=== PATIENT | male | born 1955 | race Caucasian/White ===

== ENCOUNTER 2017-09-08 19:23 | Observation (INO) | payer MEDICARE, MEDICAID ==
[~2017-09-08] VITALS: Ht 182.9 cm; Wt 80.0 kg
[~2017-09-08 19:23] MED LIST: AMBI12.5; AMIT150T; ATEN1TAB75; DIAZ10; GLYB1TAB51; REME30TA; VYTO10TA39
[2017-09-08 19:25] VITALS: BP 158/100; PULSE 84; RESP 22; TEMP 98.9; O2SAT 98
[2017-09-08 19:29] VITALS: BP 132/82; PULSE 84; RESP 18; TEMP 98.7; O2SAT 99
[2017-09-08 19:37] VITALS: RESP 24; O2SAT 99
[2017-09-08] MEDS ORDERED: EXEN1INJ2 SQ (19:44)
[2017-09-08] MEDS ORDERED: ATOR10TA15 PO (19:44)
[2017-09-08] MEDS ORDERED: ATEN100T PO (19:44)
[2017-09-08] MEDS ORDERED: QUET5TAB PO (19:44)
[2017-09-08] MEDS ORDERED: LISI2.5T3 PO (19:44)
[2017-09-08] MEDS ORDERED: MIRT45TA PO (19:44)
[2017-09-08] MEDS ORDERED: SITA25 PO (19:44)
[2017-09-08] MEDS ORDERED: QUET1TAB10 PO (19:44)
[2017-09-08] MEDS ORDERED: OMEP20TA93 PO (19:44)
[2017-09-08] MEDS ORDERED: DIAZ5TAB PO (19:44)
[2017-09-08] MEDS ORDERED: SODIUM CHLORIDE 0.9% FLUSH 10 ML FLUSH IVF PRN (19:45)
[2017-09-08] MEDS ORDERED: ASPIRIN 325 MG TAB PO ONE (19:45)
[2017-09-08] MEDS ORDERED: LORazepam 2 MG/ML VIAL IV PUSH ONE (19:45)
[2017-09-08] MEDS ORDERED: NITROGLYCERIN 0.4 MG SL 25 TABS/BTL SL ONE (19:45)
[2017-09-08 19:49] VITALS: BP_SYST 129; BP_SYST 131; BP_DIAS 69; BP_DIAS 71; PULSE 76
[2017-09-08] MEDS ORDERED: MORPHINE SULFATE 2 MG/ML SYRINGE IV PUSH ONE (20:00)
[2017-09-08 20:06] LABS: AUTOMATED NEUTROPHIL # 5.5 TH/MM3 (1.8-7.7); BASOPHIL % 0.4 % (0.0-2.0); EOSINOPHIL # 0.1 TH/MM3 (0-0.4); EOSINOPHIL % 1.3 % (0.0-4.0); HEMOGLOBIN 15.3 GM/DL (13.0-17.0); LYMPH % 28.5 % (9.0-44.0); LYMPHOCYTE # 2.5 TH/MM3 (1.0-4.8); MEAN CELL VOLUME 87.2 FL (80.0-100.0); MEAN CORPUSCULAR HEMOGLOBIN 30.2 PG (27.0-34.0); MEAN CORPUSCULAR HGB CONC 34.6 % (32.0-36.0); MEAN PLATELET VOLUME 8.6 FL (7.0-11.0); MONO % 8.1 % (0.0-8.0); MONOCYTE # 0.7 TH/MM3 (0-0.9); NEUT % 61.7 % (16.0-70.0); PLATELET COUNT 208 TH/MM3 (150-450); RED BLOOD COUNT 5.05 MIL/MM3 (4.50-5.90); RED CELL DISTRIBUTION WIDTH 13.6 % (11.6-17.2); WHITE BLOOD COUNT 8.9 TH/MM3 (4.0-11.0)
--- NOTE | 2017-09-08 20:14 | PD ---
HPI Chief Complaint: Cardiac Complaint Time Seen by Provider: 19:31 Travel History International Travel<30 days: No Contact w/Intl Traveler<30days: No Traveled to known affect area: No History of Present Illness HPI 61-year-old male the presents to the ED for evaluation of left shoulder pain and chest pain that radiates to the left arm. The patient has had this since yesterday. Go more severe today. No injury or trauma. States that he woke up with the pain. He states that he did not come here yesterday because the pain was not as bad until today about 2 hours before coming the pain became more unbearable. Per patient the pain is 10 out of 10. He denies any history of heart disease. He does have history of high blood pressure, high cholesterol, diabetes as well as severe anxiety. Per patient his pain is causing him a lot of severe anxiety and during my examination he appears to be extremely anxious. He is shaking and cannot really control himself unless he starts talking to me. He talks very fast. He states that he takes multiple medications for his anxiety. He has allergy to penicillin. He denies ever having to like this before. Did not took any aspirin or anything for pain. Allergy to penicillin. PFSH Past Medical History Bipolar Disorder: Yes Anxiety: Yes Depression: Yes High Cholesterol: Yes Diabetes: Yes Patient Takes Glucophage: No GERD: Yes Hypertension: Yes Past Surgical History Surgical History: No Previous Surgery Social History Alcohol Use: No Tobacco Use: No Substance Use: No Allergies-Medications (Allergen,Severity, Reaction): Coded Allergies: penicillin G (Unverified Allergy, Mild, 09/08/17) Reported Meds & Prescriptions Reported Meds & Active Scripts Active Reported Byetta Inj (Exenatide) 5 Mcg/0.02 Ml Pfpen 5 Mcg SQ BID Use within 60 minutes before the two main meals of the day. Atorvastatin (Atorvastatin Calcium) 10 Mg Tab 10 Mg PO HS Quetiapine (Quetiapine Fumarate) 300 Mg Tab 300 Mg PO HS Quetiapine (Quetiapine Fumarate) 50 Mg Tab 50 Mg PO BID Omeprazole 20 Mg Tab 20 Mg PO DAILY Januvia (Sitagliptin Phosphate) 25 Mg Tab 25 Mg PO DAILY Diazepam 5 Mg Tab 5 Mg PO BID PRN Lisinopril 2.5 Mg Tab 2.5 Mg PO DAILY Mirtazapine 45 Mg Tab 45 Mg PO HS Atenolol 100 Mg Tab 100 Mg PO DAILY Review of Systems Except as stated in HPI: all other systems reviewed are Neg Physical Exam Narrative GENERAL: SKIN: Warm and dry. HEAD: Atraumatic. Normocephalic. EYES: Pupils equal and round. No scleral icterus. No injection or drainage. ENT: No nasal bleeding or discharge. Mucous membranes pink and moist. Tongue is midline. No uvula deviation. NECK: Trachea midline. No JVD. CARDIOVASCULAR: Regular rate and rhythm. No murmurs, S3, S4. RESPIRATORY: No accessory muscle use. Clear to auscultation. Breath sounds equal bilaterally. GASTROINTESTINAL: Abdomen soft, non-tender, nondistended. Hepatic and splenic margins not palpable. MUSCULOSKELETAL: Extremities without clubbing, cyanosis, or edema. No obvious deformities. Full range of motion of the upper and lower extremities bilaterally. 2+ pulses bilaterally. NEUROLOGICAL: Awake and alert. No obvious cranial nerve deficits. Motor grossly within normal limits. Five out of 5 muscle strength in the arms and legs. Normal speech. PSYCHIATRIC: Very anxious mood and affect; insight and judgment normal. Data Data Last Documented VS Vital Signs Date Time Temp Pulse Resp B/P (MAP) Pulse Ox O2 Delivery O2 Flow Rate FiO2 09/08/17 20:23 20 09/08/17 19:49 76 131/69 (89) 129/71 (90) 09/08/17 19:37 99 Room Air 09/08/17 19:29 98.7 Orders Orders Electrocardiogram (09/08/17 19:31) Ckmb (Isoenzyme) Profile (09/08/17 19:31) Complete Blood Count With Diff (09/08/17 19:31) Comprehensive Metabolic Panel (09/08/17 19:31) Magnesium (Mg) (09/08/17 19:31) Prothrombin Time / Inr (Pt) (09/08/17 19:31) Act Partial Throm Time (Ptt) (09/08/17 19:31) Troponin I (09/08/17 19:31) Lipase (09/08/17 19:31) Chest, Single Ap (09/08/17 19:31) Ecg Monitoring (09/08/17 19:31) Bilateral Bp Monitoring (09/08/17 19:31) Iv Access Insert/Monitor (09/08/17 19:31) Oximetry (09/08/17 19:31) Oxygen Administration (09/08/17 19:31) Aspirin (Aspirin) (09/08/17 19:45) Sodium Chloride 0.9% Flush (Ns Flush) (09/08/17 19:45) Nitroglycerin Sl (Nitrostat Sl) (09/08/17 19:45) Lorazepam Inj (Ativan Inj) (09/08/17 19:45) Morphine Inj (Morphine Inj) (09/08/17 20:15) CKMB (09/08/17 19:47) CKMB% (09/08/17 19:47) Morphine Inj (Morphine Inj) (09/08/17 21:00) Labs Laboratory Tests Test 09/08/17 19:47 White Blood Count 8.9 TH/MM3 Red Blood Count 5.05 MIL/MM3 Hemoglobin 15.3 GM/DL Hematocrit 44.0 % Mean Corpuscular Volume 87.2 FL Mean Corpuscular Hemoglobin 30.2 PG Mean Corpuscular Hemoglobin Concent 34.6 % Red Cell Distribution Width 13.6 % Platelet Count 208 TH/MM3 Mean Platelet Volume 8.6 FL Neutrophils (%) (Auto) 61.7 % Lymphocytes (%) (Auto) 28.5 % Monocytes (%) (Auto) 8.1 % Eosinophils (%) (Auto) 1.3 % Basophils (%) (Auto) 0.4 % Neutrophils # (Auto) 5.5 TH/MM3 Lymphocytes # (Auto) 2.5 TH/MM3 Monocytes # (Auto) 0.7 TH/MM3 Eosinophils # (Auto) 0.1 TH/MM3 Basophils # (Auto) 0.0 TH/MM3 CBC Comment DIFF FINAL Differential Comment Prothrombin Time 11.0 SEC Prothromb Time International Ratio 1.1 RATIO Activated Partial Thromboplast Time 25.9 SEC Blood Urea Nitrogen 13 MG/DL Creatinine 1.24 MG/DL Random Glucose 106 MG/DL Total Protein 8.1 GM/DL Albumin 4.3 GM/DL Calcium Level 9.4 MG/DL Magnesium Level 1.9 MG/DL Alkaline Phosphatase 53 U/L Aspartate Amino Transf (AST/SGOT) 27 U/L Alanine Aminotransferase (ALT/SGPT) 40 U/L Total Bilirubin 0.5 MG/DL Sodium Level 139 MEQ/L Potassium Level 3.7 MEQ/L Chloride Level 104 MEQ/L Carbon Dioxide Level 22.6 MEQ/L Anion Gap 12 MEQ/L Estimat Glomerular Filtration Rate 60 ML/MIN Total Creatine Kinase 152 U/L Creatine Kinase MB 1.6 NG/ML Troponin I LESS THAN 0.02 NG/ML Lipase 207 U/L MDM Medical Decision Making Medical Screen Exam Complete: Yes Emergency Medical Condition: Yes Medical Record Reviewed: Yes Interpretation(s) CBC & BMP Diagram 09/08/17 19:47 Total Protein 8.1, Albumin 4.3, Calcium Level 9.4, Magnesium Level 1.9, Alkaline Phosphatase 53, Aspartate Amino Transf (AST/SGOT) 27, Alanine Aminotransferase (ALT/SGPT) 40, Total Bilirubin 0.5 Last Impressions Chest X-Ray 09/08/17 1931 Signed Impressions: CONCLUSION: Negative examination. troponin and CKMB negative EKG initial did not show any sign of acute ischemia or arrhythmia. But hard to assess this is not a good study. Read by me and attending. EKG second did not show any sign of ischemia or arrhythmia noted by me and attending. Differential Diagnosis Chest pain versus ACS versus anxiety versus shoulder pain versus NSTEMI versus STEMI versus pleurisy Narrative Course 61-year-old male the presents to the ED for evaluation of chest pain. Patient was properly examined and was found to have signs and symptoms of unclear etiology but likely concerning for ACS as he does have multiple risk factors. Patient is somewhat hard to get a history secondary to his severe anxiety. He is shaking and only when I talked to him he talks back the shaking seemed to come to stop. Cannot really get a good EKG because patient is shaking. This time labs and imaging were ordered. Patient given nitroglycerin and aspirin as well as some Ativan to help calm him down. Initial EKG did not show any sign of ST elevation or signs of ischemia but hard to assess as there is a lot of artifact secondary to the patient's shakiness from the anxiety. Labs and imaging showed no sign of acute disease. Patient's symptoms appear to have improved except the pain still present. Patient does have some pain with range of motion of the shoulder not the patient is more calm I can assess a little bit better and does appear to be more related to likely musculoskeletal. However patient does have some chest pain but is not reproducible with touch. I cannot completely rule out heart disease as he also has numbness and tingling to his left arm. He does have risk factors including high cholesterol, diabetes , age, family history as well as hypertension. At this time I do recommend admission to chest pain center for chest pain center rule out. My attending Dr. Eagle evaluated the patient himself and agrees with this. Diagnosis Primary Impression: Chest pain in adult Admitting Information Admitting Physician Requests: Observation Abel Chiang Sep 08, 2017 20:14
[2017-09-08] MEDS ORDERED: MORPHINE SULFATE 4 MG/ML INJ IV PUSH ONE ×2 (20:15→21:00)
[2017-09-08 20:19] LABS: INTERNATIONAL NORMALIZED RATIO 1.1 RATIO
--- NOTE | 2017-09-08 20:19 | RADRPT ---
EXAM DATE: 09/08/2017 7:50 PM EDT AGE/SEX: 61 years / Male INDICATIONS: Chest and left shoulder pain, denies injury CLINICAL DATA: This is the patient's initial encounter. Patient reports that signs and symptoms have been present for 2 days and indicates a pain score of 10/10. MEDICAL/SURGICAL HISTORY: Hypertension. Diabetes mellitus type II. Depression, anxiety None. COMPARISON: None. FINDINGS: A single AP view of the chest demonstrates the lungs to be symmetrically aerated without evidence of mass, infiltrate or effusion. The cardiomediastinal contours are unremarkable. Osseous structures a re intact. CONCLUSION: Negative examination. Electronically signed by: Jasiel Adler MD 09/08/2017 8:18 PM EDT
[2017-09-08 20:24] LABS: ALT (GPT) 40 U/L (12-78)
[2017-09-08 20:28] LABS: ALKALINE PHOSPHATASE 53 U/L (45-117); TOTAL BILIRUBIN ADULT 0.5 MG/DL (0.2-1.0); TOTAL PROTEIN 8.1 GM/DL (6.4-8.2); TROPONIN I LESS THAN 0.02 NG/ML (0.02-0.05)
[2017-09-08 20:32] LABS: ALBUMIN 4.3 GM/DL (3.4-5.0); AST (GOT) 27 U/L (15-37); BICARBONATE 22.6 MEQ/L (21.0-32.0); BLOOD UREA NITROGEN 13 MG/DL (7-18); CALCIUM 9.4 MG/DL (8.5-10.1); CHLORIDE 104 MEQ/L (98-107); CREATININE 1.24 MG/DL (0.60-1.30); GLOMERULAR FILTRATION RATE 60 ML/MIN (>89); GLUCOSE,RANDOM 106 MG/DL (74-106); MAGNESIUM 1.9 MG/DL (1.5-2.5); SODIUM (NA) 139 MEQ/L (136-145)
[2017-09-08] MEDS ORDERED: ONDANSETRON HCL 4 MG/2 ML VIAL IV PUSH PRN (21:00)
[2017-09-08] MEDS ORDERED: SODIUM CHLORIDE 0.9% FLUSH 10 ML FLUSH IV FLUSH PRN (21:00)
[2017-09-08] MEDS ORDERED: ACETAMINOPHEN/HYDROcodone 325 MG/7.5 MG TAB PO PRN (21:00)
[2017-09-08] MEDS ORDERED: ACETAMINOPHEN 500 MG CPLT PO PRN (21:00)
[2017-09-08] MEDS: SODIUM CHLORIDE 0.9% FLUSH 10 ML FLUSH IV FLUSH SCH (21:05)
[2017-09-08] MEDS: MORPHINE SULFATE 4 MG/ML INJ IV PUSH PRN (22:58)
[2017-09-08 23:00] VITALS: PULSE 60
[2017-09-08 23:40] LABS: TROPONIN I LESS THAN 0.02 NG/ML (0.02-0.05)
[2017-09-09] VITALS (10 sets, daily range): BP systolic 117–164; BP diastolic 67–75; PULSE 60–85; RESP 16–20; TEMP 97.9–98.8; O2SAT 94–98
[2017-09-09 02:50] LABS: TROPONIN I LESS THAN 0.02 NG/ML (0.02-0.05)
[2017-09-09] MEDS: MORPHINE SULFATE 4 MG/ML INJ IV PUSH PRN (03:24)
[2017-09-09] MEDS ORDERED: NITROGLYCERIN 0.4 MG SL 25 TABS/BTL SL PRN (07:30)
--- NOTE | 2017-09-09 08:05 | EKG ---
Date Performed: 09/08/2017 Time Performed: 23:35:13 PTAGE: 61 years EKG: Sinus rhythm NORMAL ECG PREVIOUS TRACING : 09/08/2017 20.47 Since previous tracing, no significant change noted DOCTOR: Huey Givens Interpretating Date/Time 09/09/2017 08:05:38
--- NOTE | 2017-09-09 08:06 | EKG ---
Date Performed: 09/08/2017 Time Performed: 19:35:46 PTAGE: 61 years EKG: Sinus rhythm NO PREVIOUS TRACING DOCTOR: Huey Givens Interpretating Date/Time 09/09/2017 08:06:18
--- NOTE | 2017-09-09 08:14 | EKG ---
Date Performed: 09/08/2017 Time Performed: 20:47:17 PTAGE: 61 years EKG: Sinus rhythm POSSIBLE INFERIOR MYOCARDIAL INFARCTION BORDERLINE ECG NO PREVIOUS TRACING DOCTOR: Huey Givens Interpretating Date/Time 09/09/2017 08:11:07
[2017-09-09] MEDS: SODIUM CHLORIDE 0.9% FLUSH 10 ML FLUSH IV FLUSH SCH ×2 (08:32→20:44)
[2017-09-09] MEDS: PANTOPRAZOLE SOD 20 MG DELAYED RELEASE TAB PO SCH (08:32)
[2017-09-09] MEDS: ASPIRIN 325 MG TAB PO SCH (08:32)
[2017-09-09] MEDS: DIAZEPAM 5 MG TAB PO PRN ×2 (08:32→21:42)
[2017-09-09] MEDS: QUEtiapine FUMARATE 25 MG TAB PO SCH ×2 (08:55→13:09)
--- NOTE | 2017-09-09 09:45 | HHI.HP ---
HPI Service Chest pain center Primary Care Physician Toney Humphrey MD Psychiatrist is Dr. Aneesh Zaragoza Chief Complaint Severe pain, inability to sleep, extreme anxiety History of Present Illness 61-year-old gentleman presented to the emergency room with complaints of arm and shoulder pain it was transferred to chest pain center for evaluation. However evaluation quickly determines his issues to be psychiatric. History is very difficult to obtain from the patient because he is jerking and shaking all over, pleading for Valium, and talking about being so anxious and unable to sleep that he cannot function anymore. A call was placed to his psychiatrist Dr. Sly Zaragoza in the following history was obtained. The patient has had severe anxiety depressive disorder since age 15. He was treated over a period of time by Dr. Patrick Humphrey with high doses of Valium but over recent years has been treated by Dr. Soto with an attempt to wean him off of the benzo diazepam in place him on more appropriate medication. The patient has a history of being noncompliant with this and apparently also obtaining benzos on the street. Dr. Soto believes that he is probably withdrawing currently because he can't obtain them and that he needs to be admitted to the hospital for observation for withdrawal and for further psychiatric evaluation and intervention on an inpatient basis. His diagnosis previously have been bipolar, anxiety depression, obsessive- compulsive disorder Dr. Soto would be glad to speak with his treating psychiatrist or physician. Review of Systems Cardiovascular: COMPLAINS OF: See HPI Neurologic: COMPLAINS OF: Tingling or numbness, Memory problems Psychiatric: COMPLAINS OF: Anxiety, Depression, Sleep disturbances Past Family Social History Allergies: Coded Allergies: penicillin G (Unverified Allergy, Mild, 09/08/17) Past Medical History Bipolar disorder, anxiety depression, and obsessive compulsive disorder Diabetes GERD Hypertension Benzo diazepam with addiction Past Surgical History None Reported Medications Reported Meds & Active Scripts Active Reported Byetta Inj (Exenatide) 5 Mcg/0.02 Ml Pfpen 5 Mcg SQ BID Use within 60 minutes before the two main meals of the day. Atorvastatin (Atorvastatin Calcium) 10 Mg Tab 10 Mg PO HS Quetiapine (Quetiapine Fumarate) 300 Mg Tab 300 Mg PO HS Quetiapine (Quetiapine Fumarate) 50 Mg Tab 50 Mg PO BID Omeprazole 20 Mg Tab 20 Mg PO DAILY Januvia (Sitagliptin Phosphate) 25 Mg Tab 25 Mg PO DAILY Diazepam 5 Mg Tab 5 Mg PO BID PRN Lisinopril 2.5 Mg Tab 2.5 Mg PO DAILY Mirtazapine 45 Mg Tab 45 Mg PO HS Atenolol 100 Mg Tab 100 Mg PO DAILY Active Ordered Medications Current Medications Medications (Trade) Dose Ordered Sig/Tres Route Start Time Stop Time Status Last Admin (NS Flush) 2 ml UNSCH PRN IV FLUSH 09/08/17 21:00 (NS Flush) 2 ml BID IV FLUSH 09/08/17 21:00 09/09/17 08:32 (Tylenol) 500 mg Q4H PRN PO 09/08/17 21:00 ([place] 7.5-325 Mg) 1 tab Q4H PRN PO 09/08/17 21:00 (Morphine Inj) 2 mg Q4H PRN IV PUSH 09/08/17 21:00 09/09/17 03:24 (Zofran Inj) 4 mg Q6H PRN IV PUSH 09/08/17 21:00 (Nitrostat Sl) 0.4 mg Q5M PRN SL 09/09/17 07:30 (Aspirin) 325 mg DAILY PO 09/09/17 09:00 09/09/17 08:32 (Lipitor) 10 mg HS PO 09/09/17 21:00 (Valium) 5 mg BID PRN PO 09/09/17 07:30 09/09/17 08:32 (Remeron) 45 mg HS PO 09/09/17 21:00 (SEROquel) 300 mg HS PO 09/09/17 21:00 (Protonix) 20 mg DAILY PO 09/09/17 09:00 09/09/17 08:32 (SEROquel) 50 mg BID@0900,1200 PO 09/09/17 09:00 09/09/17 08:55 Family History Father of a heart attack but had a lifelong history of anxiety depression Social History Denies alcohol or tobacco Physical Exam Vital Signs Vital Signs Date Time Temp Pulse Resp B/P (MAP) Pulse Ox O2 Delivery O2 Flow Rate FiO2 09/09/17 08:16 98.2 18 164/75 (104) 98 09/09/17 07:03 72 09/09/17 05:58 21 09/09/17 05:26 98.8 142/74 (96) 09/09/17 03:29 18 6/22/18 01:11 97.9 60 16 122/72 (89) 95 09/08/17 23:00 60 09/08/17 22:39 09/08/17 21:15 18 09/08/17 20:23 20 09/08/17 20:00 22 09/08/17 19:49 76 131/69 (89) 129/71 (90) 09/08/17 19:37 24 99 Room Air 09/08/17 19:37 99 Room Air 09/08/17 19:29 98.7 84 18 132/82 (99) 99 09/08/17 19:25 98.9 84 22 158/100 (119) 98 Room Air Physical Exam Thin somewhat frail-appearing man shaking violently and crying Eyes PERRLA EOMI Neck supple no JVD masses nodes or bruits Chest clear to auscultation with no rales wheezes or rhonchi Cardiovascular heart sounds are difficult here due to his tremulousness but appear to be regular with no audible gallop rub or murmur The abdomen is tense but seems to be nontender Extremities severe tremor diffusely to the point that coordinated movement is difficult Psychiatric history is as recorded. Patient feels he cannot function at this time without help Laboratory Laboratory Tests Test 09/08/17 19:47 09/08/17 22:59 09/09/17 01:57 White Blood Count 8.9 Red Blood Count 5.05 Hemoglobin 15.3 Hematocrit 44.0 Mean Corpuscular Volume 87.2 Mean Corpuscular Hemoglobin 30.2 Mean Corpuscular Hemoglobin Concent 34.6 Red Cell Distribution Width 13.6 Platelet Count 208 Mean Platelet Volume 8.6 Neutrophils (%) (Auto) 61.7 Lymphocytes (%) (Auto) 28.5 Monocytes (%) (Auto) 8.1 Eosinophils (%) (Auto) 1.3 Basophils (%) (Auto) 0.4 Neutrophils # (Auto) 5.5 Lymphocytes # (Auto) 2.5 Monocytes # (Auto) 0.7 Eosinophils # (Auto) 0.1 Basophils # (Auto) 0.0 CBC Comment DIFF FINAL Differential Comment Prothrombin Time 11.0 Prothromb Time International Ratio 1.1 Activated Partial Thromboplast Time 25.9 Blood Urea Nitrogen 13 Creatinine 1.24 Random Glucose 106 Total Protein 8.1 Albumin 4.3 Calcium Level 9.4 Magnesium Level 1.9 Alkaline Phosphatase 53 Aspartate Amino Transf (AST/SGOT) 27 Alanine Aminotransferase (ALT/SGPT) 40 Total Bilirubin 0.5 Sodium Level 139 Potassium Level 3.7 Chloride Level 104 Carbon Dioxide Level 22.6 Anion Gap 12 Estimat Glomerular Filtration Rate 60 Total Creatine Kinase 152 131 99 Creatine Kinase MB 1.6 1.4 Troponin I LESS THAN 0.02 LESS THAN 0.02 LESS THAN 0.02 Lipase 207 Result Diagram: 09/08/17194609/08/171946 Imaging Chest x-ray negative Course After discussion with the patient psychiatrist it was determined the patient needed to be admitted to the hospital for observation for possible withdrawal from benzodiazepine and for further evaluation and treatment for his psychiatric illness on an inpatient basis. Caprini VTE Risk Assessment Caprini VTE Risk Assessment: No/Low Risk (score <= 1) Caprini Risk Assessment Model Point Value = 1 Point Value = 2 Point Value = 3 Point Value = 5 Age 41-60 Minor surgery BMI > 25 kg/m2 Swollen legs Varicose veins or History of unexplained or recurrent spontaneous Oral contraceptives or hormone replacement Sepsis (< 1 month) Serious lung disease, including pneumonia (< 1 month) Abnormal pulmonary function Acute myocardial infarction Congestive heart failure (< 1 month) History of inflammatory bowel disease Medical patient at bed rest Age 61-74 Arthroscopic surgery Major open surgery (> 45 min) Laparoscopic surgery (> 45 min) Malignancy Confined to bed (> 72 hours) Immobilizing plaster cast Central venous access Age >= 75 History of VTE Family history of VTE Factor V Leiden Prothrombin [id number] Lupus anticoagulant Anticardiolipin antibodies Elevated serum homocysteine Heparin-induced thrombocytopenia Other congenital or acquired thrombophilia Stroke (< 1 month) Elective arthroplasty Hip, pelvis, or leg fracture Acute spinal cord injury (< 1 month) Prophylaxis Regimen Total Risk Factor Score Risk Level Prophylaxis Regimen 0-1 Low Early ambulation 2 Moderate Order ONE of the following: *Sequential Compression Device (SCD) *Heparin 5000 units SQ BID 3-4 Higher Order ONE of the following medications: *Heparin 5000 units SQ TID *Enoxaparin/Lovenox 40 mg SQ daily (WT < 150 kg, CrCl > 30 mL/min) *Enoxaparin/Lovenox 30 mg SQ daily (WT < 150 kg, CrCl > 10-29 mL/min) *Enoxaparin/Lovenox 30 mg SQ BID (WT < 150 kg, CrCl > 30 mL/min) AND/OR *Sequential Compression Device (SCD) 5 or more Highest Order ONE of the following medications: *Heparin 5000 units SQ TID (Preferred with Epidurals) *Enoxaparin/Lovenox 40 mg SQ daily (WT < 150 kg, CrCl > 30 mL/min) *Enoxaparin/Lovenox 30 mg SQ daily (WT < 150 kg, CrCl > 10-29 mL/min) *Enoxaparin/Lovenox 30 mg SQ BID (WT < 150 kg, CrCl > 30 mL/min) AND *Sequential Compression Device (SCD) Assessment and Plan Assessment and Plan Patient will be admitted to the hospitalists for further evaluation of drug dependency and withdrawal followed by psychiatric consultation for possible ongoing inpatient therapy Code Status Full code Discussed Condition With This situation was discussed with the patient's psychiatrist and with the patient Benedicto Stewart MD Sep 09, 2017 09:45
[2017-09-09] MEDS ORDERED: PILL SPLITTER OTHER PRN (10:15)
[2017-09-09] MEDS: LISINOPRIL 5 MG TAB PO SCH (11:09)
[2017-09-09] MEDS ORDERED: DEXTROSE 50% IN WATER 50 ML VIAL(D50) IV PUSH PRN (11:15)
[2017-09-09] MEDS ORDERED: GLUCAGON 1 MG/ML VIAL OTHER PRN (11:15)
--- NOTE | 2017-09-09 13:06 | HHI.PR ---
Addendum to Inpatient Note Addendum Reason: Additional Documentation Additional Information pt having obvious TTP over left shoulder which he affirms is his pain. starting heating pad and lidoderm patch and OT. awaiting psych consultation for benzo withdrawal. Pt says he actually as been taking benzodiazipines. If from psych standpoint can be discharged then will discharge patient. Michael Cho MD Sep 09, 2017 13:06
[2017-09-09] MEDS: INSULIN NovoLIN REGULAR SUPPLEMENTAL SCALE SQ SCH ×3 (13:09→20:44)
[2017-09-09] MEDS: ATENOLOL 100 MG TAB PO SCH (13:09)
[2017-09-09] MEDS: LIDOCAINE HCL 5% PATCH T-DERMAL SCH (14:11)
--- NOTE | 2017-09-09 16:03 | RADRPT ---
EXAM DATE: 09/09/2017 3:45 PM EDT AGE/SEX: 61 years / Male INDICATIONS: Patient complains of left shoulder pain and numbness in left hand. No known injury. CLINICAL DATA: This is the patient's initial encounter. Patient reports that signs and symptoms have been present for 3 days and indicates a pain score of 8/10. MEDICAL/SURGICAL HISTORY: None. None. COMPARISON: No prior exams available for comparison. FINDINGS: Degenerative changes at the AC joint.Anatomic alignment about the shoulder. Glenohumeral acromium are intact. Lung apex is clear. CONCLUSION: Degenerative changes AC joint otherwise negative . Electronically signed by: Te Barrera MD 09/09/2017 4:01 PM EDT
--- NOTE | 2017-09-09 17:46 | PD.PSY.CON ---
Provisional Diagnosis Admission Date Sep 08, 2017 at 21:01 [place] I. MDD and anxiety [place] II. Deferred History of Present Illness Service Psychiatry Consult Requested By [facility] Reason for Consult Anxiety Primary Care Physician Toney Humphrey MD HPI The patient is a 61-year-old white man, domiciled in [facility], single, unemployed, on SSI, PPHx of anxiety and bipolar depression, 2 psychiatry Hosp in [facility], [facility], outpatient care with Dr. Herrera, he is on Seroquel 50/50/300, Remeron 45, Valium 5 bid, who presented to the emergency room with complaints of arm and shoulder pain it was transferred to chest pain center for evaluation. However evaluation quickly determines his issues to be psychiatric. History is very difficult to obtain from the patient because he is jerking and shaking all over, pleading for Valium, and talking about being so anxious and unable to sleep that he cannot function anymore. A call was placed to his psychiatrist Dr. Sly Zaragoza in the following history was obtained. The patient has had severe anxiety depressive disorder since age 15. He was treated over a period of time by Dr. Patrick Humphrey with high doses of Valium but over recent years has been treated by Dr. Soto with an attempt to wean him off of the benzo diazepam in place him on more appropriate medication. The patient has a history of being noncompliant with this and apparently also obtaining benzos on the street. Dr. Soto believes that he is probably withdrawing currently because he can't obtain them and that he needs to be admitted to the hospital for observation for withdrawal and for further psychiatric evaluation and intervention on an inpatient basis. The patient presently is very anxious, shaky, intermittent speech due to the anxiety, he admits that he has been abusing the Valium, he is looking forward to discontinue this medication and detoxing of it. The patient denies suicidal and homicidal ideation, he denies visual and auditory hallucinations. He denies the use of illegal drugs and alcohol. Review of Systems Constitutional: DENIES: Diaphoretic episodes, Fatigue, Fever, Weight gain, Weight loss, Chills, Dizziness, Change in appetite, Night Sweats Endocrine: DENIES: Heat/cold intolerance, Polydipsia, Polyuria, Polyphagia Eyes: DENIES: Blurred vision, Diplopia, Eye inflammation, Eye pain, Vision loss , Photosensitivity, Double Vision Ears, nose, mouth, throat: DENIES: Tinnitus, Hearing loss, Vertigo, Nasal discharge, Oral lesions, Throat pain, Hoarseness, Ear Pain, Running Nose, Epistaxis, Sinus Pain, Toothache, Odynophagia Respiratory: DENIES: Apneas, Cough, Snoring, Wheezing, Hemoptysis, Sputum production, Shortness of breath Cardiovascular: DENIES: Chest pain, Palpitations, Syncope, Dyspnea on Exertion , PND, Lower Extremity Edema, Orthopnea, Claudication Gastrointestinal: DENIES: Abdominal pain, Black stools, Bloody stools, Constipation, Diarrhea, Nausea, Vomiting, Difficulty Swallowing, Anorexia Genitourinary: DENIES: Sexual dysfunction, Urinary frequency, Urinary incontinence, Urgency, Hematuria, Dysuria, Nocturia, Penile Discharge, Testicular Pain, Testicular Swelling Musculoskeletal: DENIES: Joint pain, Muscle aches, Stiffness, Joint Swelling, Back pain, Neck pain Integumentary: DENIES: Abnormal pigmentation, Nail changes, Pruritus, Rash Hematologic/lymphatic: DENIES: Bruising, Lymphadenopathy Immunologic/allergic: DENIES: Eczema, Urticaria Neurologic: DENIES: Abnormal gait, Headache, Localized weakness, Paresthesias, Seizures, Speech Problems, Tremor, Poor Balance Psychiatric: COMPLAINS OF: Anxiety, DENIES: Confusion, Mood changes, Depression , Hallucinations, Agitation, Suicidal Ideation, Homicidal Ideation, Delusions Past Family Social History Coded Allergies: penicillin G (Unverified Allergy, Mild, 09/08/17) Reported Medications Exenatide Inj (Byetta Inj) 5 Mcg/0.02 Ml Pfpen, 5 MCG SQ BID for Blood Sugar Management, #1.2 ML 0 Refills Use within 60 minutes before the two main meals of the day. 09/08/17 Atorvastatin (Atorvastatin) 10 Mg Tab, 10 MG PO HS for Cholesterol Management, # 30 TAB 0 Refills 09/08/17 Quetiapine (Quetiapine) 300 Mg Tab, 300 MG PO HS, #30 TAB 0 Refills 09/08/17 Quetiapine (Quetiapine) 50 Mg Tab, 50 MG PO BID, #60 TAB 0 Refills 09/08/17 Omeprazole (Omeprazole) 20 Mg Tab, 20 MG PO DAILY, #30 TAB 0 Refills 09/08/17 Sitagliptin (Januvia) 25 Mg Tab, 25 MG PO DAILY for Blood Sugar Management, #30 TAB 0 Refills 09/08/17 Diazepam (Diazepam) 5 Mg Tab, 5 MG PO BID Y for ANXIETY, TAB 0 Refills 09/08/17 Lisinopril (Lisinopril) 2.5 Mg Tab, 2.5 MG PO DAILY, #30 TAB 0 Refills 09/08/17 Mirtazapine (Mirtazapine) 45 Mg Tab, 45 MG PO HS for Depression Control, #30 TAB 0 Refills 09/08/17 Atenolol (Atenolol) 100 Mg Tab, 100 MG PO DAILY for Blood Pressure Management, # 30 TAB 0 Refills 09/08/17 Current Medications Medications (Trade) Dose Ordered Sig/Tres Route Start Time Stop Time Status Last Admin (NS Flush) 2 ml UNSCH PRN IV FLUSH 09/08/17 21:00 (NS Flush) 2 ml BID IV FLUSH 09/08/17 21:00 09/09/17 08:32 (Tylenol) 500 mg Q4H PRN PO 09/08/17 21:00 ([place] 7.5-325 Mg) 1 tab Q4H PRN PO 09/08/17 21:00 (Morphine Inj) 2 mg Q4H PRN IV PUSH 09/08/17 21:00 09/09/17 03:24 (Zofran Inj) 4 mg Q6H PRN IV PUSH 09/08/17 21:00 (Nitrostat Sl) 0.4 mg Q5M PRN SL 09/09/17 07:30 (Aspirin) 325 mg DAILY PO 09/09/17 09:00 09/09/17 08:32 (Lipitor) 10 mg HS PO 09/09/17 21:00 (Valium) 5 mg BID PRN PO 09/09/17 07:30 09/09/17 08:32 (Remeron) 45 mg HS PO 09/09/17 21:00 (SEROquel) 300 mg HS PO 09/09/17 21:00 (Protonix) 20 mg DAILY PO 09/09/17 09:00 09/09/17 08:32 (SEROquel) 50 mg BID@0900,1200 PO 09/09/17 09:00 09/09/17 13:09 (Tenormin) 100 mg DAILY PO 09/09/17 10:15 09/09/17 13:09 (Prinivil) 2.5 mg DAILY PO 09/09/17 10:15 09/09/17 11:09 (Pill Splitter) 1 ea UNSCH PRN OTHER 09/09/17 10:15 (D50w (Vial) Inj) 50 ml UNSCH PRN IV PUSH 09/09/17 11:15 (Glucagon Inj) 1 mg UNSCH PRN OTHER 09/09/17 11:15 (NovoLIN R SUPPLEMENTAL SCALE) 1 ACHS SLIDING SCALE SQ 09/09/17 12:00 09/09/17 13:09 (Lidoderm 5% Patch.12 Hr) 1 patch DAILY T-DERMAL 09/09/17 14:00 09/09/17 14:11 Miscellaneous Information 1 Q24H T-DERMAL 09/09/17 21:00 Family Psych History No family member with mental health condition Social History He was born in [place], Lives in [facility] alone, single, unemployed, on SSI Patient's Strengths (min. 2) Outpatient care Physical Exam Vital Signs Vital Signs Date Time Temp Pulse Resp B/P (MAP) Pulse Ox O2 Delivery O2 Flow Rate FiO2 09/09/17 17:01 98.2 70 20 120/70 (87) 96 09/09/17 05:58 21 09/08/17 19:37 Room Air Lab Results Test 09/08/17 19:47 09/08/17 22:59 09/09/17 01:57 09/09/17 09:44 White Blood Count 8.9 TH/MM3 Red Blood Count 5.05 MIL/MM3 Hemoglobin 15.3 GM/DL Hematocrit 44.0 % Mean Corpuscular Volume 87.2 FL Mean Corpuscular Hemoglobin 30.2 PG Mean Corpuscular Hemoglobin Concent 34.6 % Red Cell Distribution Width 13.6 % Platelet Count 208 TH/MM3 Mean Platelet Volume 8.6 FL Neutrophils (%) (Auto) 61.7 % Lymphocytes (%) (Auto) 28.5 % Monocytes (%) (Auto) 8.1 % Eosinophils (%) (Auto) 1.3 % Basophils (%) (Auto) 0.4 % Neutrophils # (Auto) 5.5 TH/MM3 Lymphocytes # (Auto) 2.5 TH/MM3 Monocytes # (Auto) 0.7 TH/MM3 Eosinophils # (Auto) 0.1 TH/MM3 Basophils # (Auto) 0.0 TH/MM3 CBC Comment DIFF FINAL Differential Comment Prothrombin Time 11.0 SEC Prothromb Time International Ratio 1.1 RATIO Activated Partial Thromboplast Time 25.9 SEC Blood Urea Nitrogen 13 MG/DL Creatinine 1.24 MG/DL Random Glucose 106 MG/DL Total Protein 8.1 GM/DL Albumin 4.3 GM/DL Calcium Level 9.4 MG/DL Magnesium Level 1.9 MG/DL Alkaline Phosphatase 53 U/L Aspartate Amino Transf (AST/SGOT) 27 U/L Alanine Aminotransferase (ALT/SGPT) 40 U/L Total Bilirubin 0.5 MG/DL Sodium Level 139 MEQ/L Potassium Level 3.7 MEQ/L Chloride Level 104 MEQ/L Carbon Dioxide Level 22.6 MEQ/L Anion Gap 12 MEQ/L Estimat Glomerular Filtration Rate 60 ML/MIN Total Creatine Kinase 152 U/L 131 U/L 99 U/L Creatine Kinase MB 1.6 NG/ML 1.4 NG/ML Troponin I LESS THAN 0.02 NG/ML LESS THAN 0.02 NG/ML LESS THAN 0.02 NG/ML Lipase 207 U/L Urine Opiates Screen POS Urine Barbiturates Screen NEG Urine Amphetamines Screen NEG Urine Benzodiazepines Screen POS Urine Cocaine Screen NEG Urine Cannabinoids Screen NEG Mental Status Examination Appearance: Appropriate Consciousness: Alert Orientation: x4 Motor Activity: Normal gait Speech: Unremarkable Language: Adequate Fund of Knowledge: Adequate Attention and Concentration: Adequate Memory: Unremarkable Mood: Irritable Affect: Anxious Thought Process & Associations: Intact Thought Content: Appropriate Hallucination Type: None Delusion Type: None Suicidal Ideation: No Suicidal Plan: No Suicidal Intention: No Homicidal Ideation: No Homicidal Plan: No Homicidal Intention: No Insight: Poor Judgment: Poor Assessment & Plan Problem List: (1) TIGIST (generalized anxiety disorder) ICD Codes: F41.1 - Generalized anxiety disorder Assessment & Plan: The patient presents extremely anxious, shaky, with bilateral hand tremors, intermittent speech, very repetitive. The patient has history of depression and TIGIST, 2 hospitalizations, he is an outpatient of Dr Soto, he is on Seroquel 200 mg at bedtime, 50 mg in the morning and 50 mg in the evening, Remeron 45 mg, and diazepam 5 mg daily. Patient reports that he has been taking diazepam since the age of 15, for many years he was taking 40 mg daily, in the last 2 months was decreased to 15 mg, admits that at times he has been abusing this medication. Seems to me like his current anxiety is also related with benzodiazepine withdrawal. I offer him a voluntary psychiatric admission to manage his anxiety, but with the clarification that we will taper down his diazepam and will restart another medication nonnarcotic for anxiety. Patient would be admitted in psychiatry. Continue Seroquel 50/50/300. Remeron 45 million. We will give diazepam 5 mg in the morning, 5 mg in the afternoon and 10 mg at bedtime, but will decrease by 25% per day. We will replace with gabapentin 300 mg 3 times daily that would help with anxiety and also with pain. Brief supportive psychotherapy provided. Consult appreciated. Assessment & Plan Estimated LOS: Williams Condon MD Sep 09, 2017 17:46
[2017-09-09] MEDS: MIRTAZAPINE 15 MG TAB PO SCH (20:44)
[2017-09-09] MEDS: QUEtiapine FUMARATE 300 MG TAB PO SCH (20:44)
[2017-09-09] MEDS: KETOROLAC TROMETHAMINE 30 MG/ML (IVP) VIAL IV PUSH PRN (20:48)
[2017-09-09] MEDS ORDERED: REMOVE OLD LIDOCAINE PATCH T-DERMAL SCH (21:00)
[2017-09-09] MEDS ORDERED: ATORVASTATIN 10 MG TAB PO SCH (21:00)
[2017-09-10 00:22] VITALS: BP 105/61; PULSE 63; RESP 16; TEMP 98.3; O2SAT 93
[2017-09-10 04:10] VITALS: BP 103/64; PULSE 61; RESP 16; TEMP 98.2; O2SAT 94
[2017-09-10] MEDS: KETOROLAC TROMETHAMINE 30 MG/ML (IVP) VIAL IV PUSH PRN ×2 (06:38→15:20)
[2017-09-10] MEDS: INSULIN NovoLIN REGULAR SUPPLEMENTAL SCALE SQ SCH ×3 (08:00→17:00)
--- NOTE | 2017-09-10 08:14 | HHI.PR ---
Subjective Remarks Pt seen and examined for follow-up of L shoulder pain, anxiety, and benzodiazepine withdrawal. AFVSS. Per nursing, patient extremely anxious and constantly complaining of left arm and shoulder pain. Patient reports excruciating 10/10, sharp pain in his L shoulder and upper arm. He denies any trauma or overuse type injury. He is right-handed. He endorses some tingling in his left fingers. Pain is worse when he is just resting and he is able to move his arm and shoulder around. He states the pain is so severe he cannot even walk. He states he is extremely anxious and has a lot on his mind. He is agreeable for voluntary psych admission. Objective Vital Signs Date Time Temp Pulse Resp B/P (MAP) Pulse Ox O2 Delivery O2 Flow Rate FiO2 09/10/17 04:10 98.2 61 16 103/64 (77) 94 09/10/17 00:22 98.3 63 16 105/61 (76) 93 09/09/17 21:36 16 09/09/17 20:35 98.4 61 16 117/67 (84) 94 09/09/17 19:43 94 21 09/09/17 17:01 98.2 70 20 120/70 (87) 96 09/09/17 15:56 61 09/09/17 12:55 98.2 84 20 143/68 (93) 96 09/09/17 12:02 85 09/09/17 08:16 98.2 80 18 164/75 (104) 98 Result Diagram: 09/08/17194609/08/171946 Objective Remarks GENERAL: WN, WD male resting in bed when I walk in and grows increasingly anxious during the encounter. SKIN: Warm and dry. HEENT: AT/NC. Pupils equal and round. MMM. NECK: Supple no tender LAD or JVD. No bony cervical tenderness. HEART: RRR no m/r/g. LUNGS: CTAB without wheezes or crackles. ABDOMEN: +BS, soft, NT, ND. EXTREMITIES: Tender with minimal palpation over left upper arm and shoulder. No visible lesions or rash over the tender areas. Able to shrug shoulders and have full ROM of L arm at the shoulder. Pain not present consistently during exam. NEURO: Awake and alert. Nonfocal. PSYCH: Obviously anxious. Hyperverbal. A/P Assessment and Plan 61 YOWM with history of bipolar disorder, anxiety, depression, OCD, DM, GERD, HTN, and benzodiazepine abuse initially admitted to chest pain center on 09/08 but evaluation quickly deemed to be psychiatric in nature. 1. Benzodiazepine withdrawal - Pt obviously anxious and withdrawing - Psych consulted and recommended voluntary admission to manage his anxiety 2. L shoulder/upper arm pain - Initially presenting with CP, ACS ruled out - CXR negative - XR showing degenerative AC joint - Heating pad - Lidocaine patch - Toradol PRN - Start gabapentin 300 mg PO TID - OT following; per assessment no physical signs of true pain were seen - Check CT C-spine given questionable radicular symptoms and excruciating pain with superficial tenderness, if negative discharge to psych 3. DM - Resume home Januvia - Hold Byetta - SSI per protocol 4. HLD - Resume home statin 5. HTN - BPs well-controlled - Resume home atenolol DVT prophylaxis: SCDs, encourage ambulation Discharge Planning D/C to psych if CT cervical spine negative Brittanie Flower MD Sep 10, 2017 08:14
[2017-09-10] MEDS: ASPIRIN 325 MG TAB PO SCH (08:41)
[2017-09-10] MEDS: PANTOPRAZOLE SOD 20 MG DELAYED RELEASE TAB PO SCH (08:41)
[2017-09-10] MEDS: SODIUM CHLORIDE 0.9% FLUSH 10 ML FLUSH IV FLUSH SCH (08:41)
[2017-09-10] MEDS: DIAZEPAM 5 MG TAB PO PRN ×2 (08:42→19:32)
[2017-09-10] MEDS: ATENOLOL 100 MG TAB PO SCH (08:42)
[2017-09-10] MEDS: QUEtiapine FUMARATE 25 MG TAB PO SCH ×2 (08:42→12:06)
[2017-09-10] MEDS: LIDOCAINE HCL 5% PATCH T-DERMAL SCH (08:43)
[2017-09-10] MEDS: LISINOPRIL 5 MG TAB PO SCH (08:45)
[2017-09-10] MEDS: GABAPENTIN 300 MG CAP PO SCH ×3 (08:47→17:27)
--- NOTE | 2017-09-10 10:38 | RADRPT ---
EXAM DATE: 09/10/2017 10:31 AM EDT AGE/SEX: 61 years / Male INDICATIONS: Neck pain, left shoulder pain, numbness and tingling down left arm. CLINICAL DATA: This is the patient's initial encounter. Patient reports that signs and symptoms have been present for 3 days and indicates a pain score of 8/10. MEDICAL/SURGICAL HISTORY: Hypertension. Cardiovascular disease. Diabetes. None. RADIATION DOSE: 23.02 CTDI (mGy) COMPARISON: No prior exams available for comparison. TECHNIQUE: Contiguous axial images were obtained using helical multirow detector technique. The vol umetric data was post-processed with multiplanar reconstruction in oblique axial, sagittal, and coron al planes. Using automated exposure control and adjustment of the mA and/or kV according to patient s ize, radiation dose was kept as low as reasonably achievable to obtain optimal diagnostic quality padma ges. DICOM format image data is available electronically for review and comparison. FINDINGS: Vertebrae: Normal vertebral body height. Mild degenerative changes. Alignment: Slight levocurvature. No subluxation. C2-3: The bony spinal canal is normal in size. No evidence of disc bulge or herniation. The neural foramina are bilaterally patent. C3-4: The bony spinal canal is normal in size. No evidence of disc bulge or herniation. The neural foramina are bilaterally patent. C4-5: Mild broad-based posterior disc osteophyte complex abuts the ventral thecal sac without canal stenosis. Moderate bilateral neural foraminal narrowing.. C5-6: Mild broad-based posterior disc osteophyte complex abuts the ventral thecal sac without canal stenosis. Moderate bilateral neural foraminal narrowing. C6-7: Mild broad-based posterior disc osteophyte complex abuts the ventral thecal sac without canal stenosis. Moderate bilateral neural foraminal narrowing. C7-T1: The bony spinal canal is normal in size. No evidence of disc bulge or herniation. The neura l foramina are bilaterally patent. CONCLUSION: 1. Posterior disc osteophyte complex C4-5, C5-6 and C6-7 levels. No canal stenosis. 2. Neural foraminal narrowing as described above. 3. Levo scoliosis. Electronically signed by: Cristino Silva MD 09/10/2017 10:37 AM EDT
[2017-09-10 12:00] VITALS: BP 132/65; PULSE 60; RESP 20; TEMP 96.5; O2SAT 96
[2017-09-10] MEDS ORDERED: NEUR300C PO (15:44)
--- NOTE | 2017-09-10 15:45 | HHI.DCPOC ---
Discharge Care Plan Diagnosis: (1) Shoulder arthritis (2) Cervical disc disease Goals to Promote Your Health * To prevent worsening of your condition and complications * To maintain your health at the optimal level Directions to Meet Your Goals Take your medications as prescribed Follow your dietary instruction Follow activity as directed Keep your appointments as scheduled Take your immunizations and boosters as scheduled If your symptoms worsen call your PCP, if no PCP go to Urgent Care Center or Emergency Room Smoking is Dangerous to Your Health. Avoid second hand smoke Call the 24-hour hour crisis hotline for domestic abuse at Brittanie Flower MD Sep 10, 2017 15:45
[2017-09-10 16:00] VITALS: BP 131/81; PULSE 61; RESP 20; TEMP 95.6; O2SAT 97
[2017-09-10 17:50] VITALS: PULSE 59
[2017-09-10] MEDS: QUEtiapine FUMARATE 300 MG TAB PO SCH (19:32)
[2017-09-10] MEDS: MIRTAZAPINE 15 MG TAB PO SCH (19:32)
[2017-09-10 19:56] VITALS: O2SAT 94
--- NOTE | 2017-09-12 23:36 | EKG ---
Date Performed: 09/09/2017 Time Performed: 02:01:05 PTAGE: 61 years EKG: SINUS BRADYCARDIA BORDERLINE ECG PREVIOUS TRACING : 09/08/2017 23.35 Since the previous tracing, no significant change noted DOCTOR: Jorge Calero Interpretating Date/Time 09/12/2017 23:35:49
== END 2017-09-10 20:25 ==
LOC: NEPE 19:23 → NEDA 21:01 → NEPFCDU 22:42
PROVIDERS: ADMIT Family Medicine; ATTEND Family Medicine
DX: M25.512 Pain in left shoulder (principal); M50.90 Cervical disc disorder, unspecified, unspecified cervical region; F13.239 Sedative, hypnotic or anxiolytic dependence with withdrawal, unspecified; F41.1 Generalized anxiety disorder; M19.019 Primary osteoarthritis, unspecified shoulder; R07.9 Chest pain, unspecified; F41.8 Other specified anxiety disorders; F32.9 Major depressive disorder, single episode, unspecified; Z91.19 Patient's noncompliance with other medical treatment and regimen; R25.1 Tremor, unspecified; E78.00 Pure hypercholesterolemia, unspecified; E11.9 Type 2 diabetes mellitus without complications; K21.9 Gastro-esophageal reflux disease without esophagitis; I10 Essential (primary) hypertension; G47.00 Insomnia, unspecified; E78.5 Hyperlipidemia, unspecified
CPT/HCPCS: 71045; 72125; 73030; 80053; 80307; 82550; 82552; 82948; 83690; 83735; 84484; 85025; 85610; 85730; 93005; 96372; 96374; 96375; 96376; 97166; 99285; G0378; G8987; G8988; J1885; J2060; J2270

== ENCOUNTER 2017-09-10 19:30 | Inpatient (IN) | payer OTHER, MEDICARE ==
[~2017-09-10] VITALS: Ht 175.3 cm; Wt 74.5 kg
[~2017-09-10 19:30] MED LIST changes: -AMBI12.5; -AMIT150T; +ATEN100T PO; -ATEN1TAB75; +ATOR10TA15 PO; -DIAZ10; +DIAZ5TAB PO; +EXEN1INJ2 SQ; -GLYB1TAB51; +LISI2.5T3 PO; +MIRT45TA PO; +NEUR300C PO; +OMEP20TA93 PO; +QUET1TAB10 PO; +QUET5TAB PO; -REME30TA; +SITA25 PO; -VYTO10TA39
[2017-09-10 21:10] VITALS: BP 145/77; PULSE 58; RESP 17; TEMP 98.3; O2SAT 93
[2017-09-10] MEDS ORDERED: ALUMINUM/MAGNESIUM/SIMETH 30 ML CUP PO PRN (22:15)
[2017-09-10] MEDS ORDERED: LORazepam 2 MG/ML VIAL IV PUSH PRN ×4 (22:15)
[2017-09-10] MEDS ORDERED: MAGNESIUM HYDROXIDE SUSP 30 ML CUP PO PRN (22:15)
[2017-09-10] MEDS ORDERED: LORazepam 2 MG TAB PO PRN (22:15)
[2017-09-10] MEDS ORDERED: diphenhydrAMINE HCL 50 MG CAP - HS PRN PO (22:15)
[2017-09-10] MEDS ORDERED: FLUMAZENIL 0.5 MG/5 ML VIAL IV PUSH PRN (22:15)
[2017-09-10] MEDS ORDERED: diphenhydrAMINE HCL 50 MG/ML VIAL - HS PRN IM (22:15)
[2017-09-10] MEDS: ACETAMINOPHEN 325 MG TAB PO PRN (22:22)
[2017-09-10] MEDS: LORazepam 1 MG TAB PO PRN (22:22)
[2017-09-11] MEDS: ACETAMINOPHEN 325 MG TAB PO PRN ×2 (03:25→12:51)
[2017-09-11 05:28] VITALS: BP 136/71; PULSE 55; RESP 18; TEMP 97.1; O2SAT 97
[2017-09-11] MEDS ORDERED: DEXTROSE 50% IN WATER 50 ML VIAL(D50) IV PUSH PRN (08:30)
[2017-09-11] MEDS ORDERED: GLUCAGON 1 MG/ML VIAL OTHER PRN (08:30)
[2017-09-11] MEDS ORDERED: PILL SPLITTER OTHER PRN (08:45)
--- NOTE | 2017-09-11 08:54 | HHI.HP ---
Provisional Diagnosis Admission Date Sep 10, 2017 at 20:03 [place] I. General Anxiety Disorder Certification of Person's Competence To Provide Express and Informed Consent I have personally examined Sumeet Saenz , a person being served at [facility] on, Sep 11, 2017 08:45. Express and informed consent means consent voluntarily given in writing, by a competent person, after sufficient explanation and disclosure of the subject matter involved to enable the person to make a knowing and willful decision without any element of force, fraud, deceit, duress, or other form of constraint or coercion. This person is 18 years of age or older, is not now known to be incompetent to consent to treatment with a guardian advocate, and does not have a health care surrogate or proxy currently making medical treatment decisions. I have found this person to be one of the following: [xxx] Competent to provide express and informed consent, as defined above, for voluntary admission to this facility and is competent to provide express and informed consent for treatment. He/she has the consistent capacity to make well reasoned, willful, and knowing decisions concerning his or her medical or mental health treatment. The person fully and consistently understands the purpose of the admission for examination/placement and is fully capable of personally exercising all rights assured under [place] Incompetent to provide express and informed consent to voluntary admission, and this is incompetent to provide express and informed consent to treatment. The person must be transferred to involuntary status and a petition for a guardian advocate filed with the Circuit Court. [] Refusing to provide express and informed consent to voluntary admission but is competent to provide express and informed consent for treatment. The person must be discharged or transferred to involuntary status. Form shall be completed within 24 hours of a person's arrival at the receiving facility and filed in the clinical record of each person: 1. Admitted on a voluntary basis 2. Permitted to provide express and informed consent to his/her own treatment 3. Allowed to transfer from involuntary to voluntary status 4. Prior to permitting a person to consent to his or her own treatment after having been previously found incompetent to consent to treatment. History of Present Illness Capacity: Has Capacity HPI Patient is a 61-year-old man, single, domiciled alone, with a past psychiatric history of depression, anxiety, insomnia, 1 previous psychiatric admission, no previous suicide attempt or self interest behavior, with a past medical history significant for hypertension, hyperlipidemia, diabetes, GERD who had presented to the ED due to left arm pain and during evaluation was noted to have significant anxiety which psychiatry was consulted for evaluation and was admitted to the inpatient psychiatric unit voluntarily for further evaluation and management of anxiety. Patient was found sitting in hospital bed noted to be calm, cooperative. Patient states that he has "very bad anxiety " and that he had been on Valium for years and during evaluation in the ED with the psychiatrist and collaboration with his outpatient psychiatrist had agreed on tapering of Valium with new treatment regimen to address anxiety. Patient states that he had been shaking in the ER which prompted a consult with psychiatry due to his anxiety and mostly worried about his left arm pain which he states had been evaluated in the ED for the same. Patient continues report significant left arm pain reporting this difficulty with lifting his arm but denies any triggering events, trauma or fall related to the pain. He denies any depressive, manic or psychotic symptoms at this time stating that his mood has been "good" denies any perceptual disturbances or delusions, rest of psychiatric review of systems negative. Family psychiatric history: Denies Past psychiatric history: Anxiety, depression, insomnia, 1 previous psychiatric admission in 1999, no previous suicide attempt or self-injurious behavior. Outpatient mental health providers Dr. Soto, denies any history of abuse. Substance use history: Denies Past medical history: Hypertension, hyperlipidemia, diabetes, GERD Allergies: Penicillin Social history: Born in [place], single, no children, domiciled alone, unemployed on SSI, no background, no asked to firearms. No legal history. Review of Systems Musculoskeletal: COMPLAINS OF: Joint pain (Left shoulder and elbow) Except as stated in HPI: all other systems reviewed are Neg Past Psych History Psychological trauma history Denies Violence risk - others (6 mos) Low Violence risk - self (6 mos) Low Substance Abuse History Drugs/Alcohol past 12 months Denies Past Family Social History Coded Allergies: penicillin G (Unverified Allergy, Mild, 09/08/17) Active Scripts Gabapentin (Neurontin) 300 Mg Cap, 300 MG PO TID for Pain Management, #90 CAP Prov:Brittanie Flower MD 09/10/17 Reported Medications Exenatide Inj (Byetta Inj) 5 Mcg/0.02 Ml Pfpen, 5 MCG SQ BID for Blood Sugar Management, #1.2 ML 0 Refills Use within 60 minutes before the two main meals of the day. 09/08/17 Atorvastatin (Atorvastatin) 10 Mg Tab, 10 MG PO HS for Cholesterol Management, # 30 TAB 0 Refills 09/08/17 Quetiapine (Quetiapine) 300 Mg Tab, 300 MG PO HS, #30 TAB 0 Refills 09/08/17 Quetiapine (Quetiapine) 50 Mg Tab, 50 MG PO BID, #60 TAB 0 Refills 09/08/17 Omeprazole (Omeprazole) 20 Mg Tab, 20 MG PO DAILY, #30 TAB 0 Refills 09/08/17 Sitagliptin (Januvia) 25 Mg Tab, 25 MG PO DAILY for Blood Sugar Management, #30 TAB 0 Refills 09/08/17 Diazepam (Diazepam) 5 Mg Tab, 5 MG PO BID Y for ANXIETY, TAB 0 Refills 09/08/17 Lisinopril (Lisinopril) 2.5 Mg Tab, 2.5 MG PO DAILY, #30 TAB 0 Refills 09/08/17 Mirtazapine (Mirtazapine) 45 Mg Tab, 45 MG PO HS for Depression Control, #30 TAB 0 Refills 09/08/17 Atenolol (Atenolol) 100 Mg Tab, 100 MG PO DAILY for Blood Pressure Management, # 30 TAB 0 Refills 09/08/17 Current Medications Medications (Trade) Dose Ordered Sig/Tres Route Start Time Stop Time Status Last Admin (Benadryl) 50 mg HS PRN PO 09/10/17 22:15 (Benadryl Inj) 50 mg HS PRN IM 09/10/17 22:15 (Tylenol) 650 mg Q4H PRN PO 09/10/17 22:15 09/11/17 03:25 (Milk Of Magnesia Liq) 30 ml DAILY PRN PO 09/10/17 22:15 (Mag-Al Plus Susp Liq) 30 ml Q6H PRN PO 09/10/17 22:15 (Ativan) 1 mg Q4H PRN PO 09/10/17 22:15 09/10/17 22:22 (Ativan Inj) 1 mg Q4H PRN IV PUSH 09/10/17 22:15 (Ativan) 2 mg Q2H PRN PO 09/10/17 22:15 (Ativan Inj) 2 mg Q2H PRN IV PUSH 09/10/17 22:15 (Ativan Inj) 2 mg Q1H PRN IV PUSH 09/10/17 22:15 (Ativan Inj) 2 mg Q15M PRN IV PUSH 09/10/17 22:15 (Romazicon Inj) 0.2 mg Q1M PRN IV PUSH 09/10/17 22:15 (SEROquel) 300 mg HS PO 09/11/17 21:00 (SEROquel) 50 mg DAILY@0900,1200 PO 09/11/17 09:00 (Remeron) 45 mg HS PO 09/11/17 21:00 (Valium) 5 mg TID PO 09/11/17 09:00 (Neurontin) 300 mg TID PO 09/11/17 09:00 (Tenormin) 100 mg DAILY PO 09/11/17 09:00 (Lipitor) 10 mg HS PO 09/11/17 21:00 (Januvia) 25 mg DAILY PO 09/11/17 09:00 (Prinivil) 2.5 mg DAILY PO 09/11/17 09:00 (D50w (Vial) Inj) 50 ml UNSCH PRN IV PUSH 09/11/17 08:30 (Glucagon Inj) 1 mg UNSCH PRN OTHER 09/11/17 08:30 (NovoLOG SUPPLEMENTAL SCALE) 1 ACHS SLIDING SCALE SQ 09/11/17 12:00 (Pill Splitter) 1 ea UNSCH PRN OTHER 09/11/17 08:45 Family Psych History Denies Social History See HPI Patient's Strengths (min. 2) Verbal and communicative Physical Exam Patient not noted to be in acute distress, but noted with limited range of motion of left arm secondary to pain, no signs of tremor or EPS, no signs of psychomotor agitation or retardation. Vital Signs Vital Signs Date Time Temp Pulse Resp B/P (MAP) Pulse Ox O2 Delivery O2 Flow Rate FiO2 09/11/17 05:28 97.1 55 18 136/71 (92) 97 I/O 09/11/17 09/11/17 09/12/17 08:00 16:00 00:00 Intake Total 720 ml Balance 720 ml Lab Results Test 09/11/17 07:48 Mental Status Examination Appearance: Appropriate Consciousness: Alert Orientation: Person, Place, Date/Time Motor Activity: Normal gait Speech: Pressured Language: Adequate Fund of Knowledge: Inadequate Attention and Concentration: Adequate Memory: Unremarkable Mood: Anxious Affect: Anxious Thought Process & Associations: Intact, Linear Thought Content: Appropriate Hallucination Type: None Delusion Type: None Suicidal Ideation: No Suicidal Plan: No Suicidal Intention: No Homicidal Ideation: No Homicidal Plan: No Homicidal Intention: No Insight: Fair Judgment: Impulsive Assessment & Plan Problem List: (1) TIGIST (generalized anxiety disorder) ICD Codes: F41.1 - Generalized anxiety disorder Assessment & Plan Estimated LOS: 3-5 days. Patient is 61-year-old man who carries a diagnosis of anxiety, depression, insomnia, with a previous psychiatric admission, no previous suicide attempt or self interest behavior was admitted voluntarily for management of anxiety medication regimen. Patient continues to be noted to have noted anxiety symptoms, exacerbated by recent complaint of left shoulder pain. Hospitalist consult pending. We will continue patient on quetiapine 50 mg/50/300, mirtazapine 45 mg p.o. at bedtime, diazepam 5/5/5 milligrams with reduction of 25% daily along with starting of gabapentin 300 mg p.o. 3 times daily for anxiety. Continue monitor mood and behavior. Social work intervention for psychosocial assessment. Discharge planning in progress. Discharge Planning Patient return back to his residence was psychiatrically stable. Cristino De Los Santos MD Sep 11, 2017 08:54
[2017-09-11] MEDS ORDERED: DIAZEPAM 5 MG TAB PO SCH (09:00)
[2017-09-11 09:01] LABS: BLOOD UREA NITROGEN 14 MG/DL (7-18); CALCIUM 8.8 MG/DL (8.5-10.1); CHLORIDE 106 MEQ/L (98-107); CREATININE 0.84 MG/DL (0.60-1.30); GLOMERULAR FILTRATION RATE 94 ML/MIN (>89); GLUCOSE,RANDOM 129 MG/DL (74-106); SODIUM (NA) 141 MEQ/L (136-145)
[2017-09-11 09:02] LABS: CHOLESTEROL 132 MG/DL (120-200); TRIGLYCERIDES 90 MG/DL (42-150)
[2017-09-11 09:11] LABS: CHOLESTEROL/ HDL RATIO 3.33 RATIO; HDL CHOLESTEROL 39.6 MG/DL (40.0-60.0); LDL CHOLESTEROL 74 MG/DL (0-99)
[2017-09-11] MEDS: QUEtiapine FUMARATE 25 MG TAB PO SCH ×2 (09:42→12:51)
[2017-09-11] MEDS: LISINOPRIL 5 MG TAB PO SCH (09:43)
[2017-09-11] MEDS: ATENOLOL 100 MG TAB PO SCH (09:43)
[2017-09-11] MEDS: DIAZEPAM 5 MG TAB PO SCH ×3 (09:43→18:20)
[2017-09-11] MEDS: GABAPENTIN 300 MG CAP PO SCH ×3 (09:43→18:20)
[2017-09-11] MEDS: INSULIN ASPART SUPPLEMENTAL SCALE SQ SCH ×3 (12:00→20:19)
--- NOTE | 2017-09-11 15:11 | PD.CONS ---
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 He was worked up in the chest pain center and found to have more of psychiatric issue and possible Valium withdrawal. As per review of records, his psychiatrist Dr. Soto has been called, patient has been noncompliant with Valium weaning off and has been obtaining Valium on the streets. He is now admitted to psychiatry unit for further evaluation. Consulted for assistance with medical management. Patient seen and examined today. He goes on and on with his right upper extremity pain, numbness. States he has been on Valium 40 mg since he was 15 years old and that he his new psychiatrist for 2 years have been trying to wean him off of the Valium giving him only 15 mg. States that he has been doing okay with a 15 mg of Valium a day with Seroquel doses. However he woke up yesterday with severe pain on the left arm. States that in the ED they have been giving him pain medications including IV injections to control his pain. Asking why he cant get IV pain medications. Patient has been very concentrated on his left arm pain that he keeps on skipping the questions to be answered and referred back to his left arm pain on how is going to be managed. States that the psychiatrist is going to give him gabapentin but he wants a stronger medication. Appears to be pain seeking. Patient also states that he had a history of diabetes and has been waiting for his Bylaz. Discussed with patient that he will be on his Januvia and will start on his insulin sliding scale to manage his diabetes and he can go back to [facility] once he goes home. 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 States that all his family has been and he has a brother in [place] who has not been talking to him. Denies SOB/ dyspnea. Denies chest pain, palpitations, headaches, dizziness. Denies fevers, chills, n/v/d. Denies hematuria, dysuria. Review of Systems Except as stated in HPI: all other systems reviewed are Neg Past Family Social History Allergies: Coded Allergies: penicillin G (Unverified Allergy, Mild, 09/08/17) Past Medical History Anxiety Depression Bipolar disorder OCD Diabetes type 2 GERD HTN HLD Past Surgical History Denies any past surgical history Reported Medications Reported Meds & Active Scripts Active Neurontin (Gabapentin) 300 Mg Cap 300 Mg PO TID Reported Byetta Inj (Exenatide) 5 Mcg/0.02 Ml Pfpen 5 Mcg SQ BID Use within 60 minutes before the two main meals of the day. Atorvastatin (Atorvastatin Calcium) 10 Mg Tab 10 Mg PO HS Quetiapine (Quetiapine Fumarate) 300 Mg Tab 300 Mg PO HS Quetiapine (Quetiapine Fumarate) 50 Mg Tab 50 Mg PO BID Omeprazole 20 Mg Tab 20 Mg PO DAILY Januvia (Sitagliptin Phosphate) 25 Mg Tab 25 Mg PO DAILY Diazepam 5 Mg Tab 5 Mg PO BID PRN Lisinopril 2.5 Mg Tab 2.5 Mg PO DAILY Mirtazapine 45 Mg Tab 45 Mg PO HS Atenolol 100 Mg Tab 100 Mg PO DAILY Active Ordered Medications Current Medications Medications (Trade) Dose Ordered Sig/Tres Route Start Time Stop Time Status Last Admin (Benadryl) 50 mg HS PRN PO 09/10/17 22:15 (Benadryl Inj) 50 mg HS PRN IM 09/10/17 22:15 (Tylenol) 650 mg Q4H PRN PO 09/10/17 22:15 09/11/17 12:51 (Milk Of Magnesia Liq) 30 ml DAILY PRN PO 09/10/17 22:15 (Mag-Al Plus Susp Liq) 30 ml Q6H PRN PO 09/10/17 22:15 (Ativan) 1 mg Q4H PRN PO 09/10/17 22:15 09/10/17 22:22 (Ativan Inj) 1 mg Q4H PRN IV PUSH 09/10/17 22:15 (Ativan) 2 mg Q2H PRN PO 09/10/17 22:15 (Ativan Inj) 2 mg Q2H PRN IV PUSH 09/10/17 22:15 (Ativan Inj) 2 mg Q1H PRN IV PUSH 09/10/17 22:15 (Ativan Inj) 2 mg Q15M PRN IV PUSH 09/10/17 22:15 (Romazicon Inj) 0.2 mg Q1M PRN IV PUSH 09/10/17 22:15 (SEROquel) 300 mg HS PO 09/11/17 21:00 (SEROquel) 50 mg DAILY@0900,1200 PO 09/11/17 09:00 09/11/17 12:51 (Remeron) 45 mg HS PO 09/11/17 21:00 (Valium) 5 mg TID PO 09/11/17 09:00 09/11/17 12:50 (Neurontin) 300 mg TID PO 09/11/17 09:00 09/11/17 12:51 (Tenormin) 100 mg DAILY PO 09/11/17 09:00 09/11/17 09:43 (Lipitor) 10 mg HS PO 09/11/17 21:00 (Januvia) 25 mg DAILY PO 09/11/17 09:00 09/11/17 09:43 (Prinivil) 2.5 mg DAILY PO 09/11/17 09:00 09/11/17 09:43 (D50w (Vial) Inj) 50 ml UNSCH PRN IV PUSH 09/11/17 08:30 (Glucagon Inj) 1 mg UNSCH PRN OTHER 09/11/17 08:30 (NovoLOG SUPPLEMENTAL SCALE) 1 ACHS SLIDING SCALE SQ 09/11/17 12:00 (Pill Splitter) 1 ea UNSCH PRN OTHER 09/11/17 08:45 Family History States father has bipolar disorder, anxiety, depression, diabetes Social History Denies alcohol use Denies tobacco use Denies illicit drug Physical Exam Vital Signs Vital Signs Date Time Temp Pulse Resp B/P (MAP) Pulse Ox O2 Delivery O2 Flow Rate FiO2 09/11/17 05:28 97.1 55 18 136/71 (92) 97 09/10/17 21:10 98.3 58 17 145/77 (99) 93 Physical Exam GENERAL: This is a well-nourished, well-developed patient, in no apparent distress. SKIN: Cool and dry. HEAD: Normocephalic. EYES: Pupils equal round and reactive. Extraocular motions intact. No scleral icterus. No injection or drainage. ENT: Nose without bleeding. Throat without erythema. Uvula midline. Airway patent. NECK: Trachea midline. CARDIOVASCULAR: Regular rate and rhythm without murmurs, gallops, or rubs. RESPIRATORY: Clear to auscultation. Breath sounds equal bilaterally. No wheezes , rales, or rhonchi. GASTROINTESTINAL: Abdomen soft, non-tender, nondistended. MUSCULOSKELETAL: Extremities without clubbing, cyanosis, or edema. Left upper extremity no edema, erythema noted. Painful abduction to from 40-90. Tenderness to palpate NEUROLOGICAL: Awake and alert. Motor and sensory grossly within normal limits. Anxious. Repetitive. Pressured speech. Laboratory Laboratory Tests Test 09/11/17 07:48 Blood Urea Nitrogen 14 Creatinine 0.84 Random Glucose 129 Calcium Level 8.8 Sodium Level 141 Potassium Level 3.9 Chloride Level 106 Carbon Dioxide Level 26.0 Anion Gap 9 Estimat Glomerular Filtration Rate 94 Hemoglobin A1c 5.0 Triglycerides Level 90 Cholesterol Level 132 LDL Cholesterol 74 HDL Cholesterol 39.6 Cholesterol/HDL Ratio 3.33 Thyroid Stimulating Hormone 3rd Gen 2.070 Result Diagram: 09/11/17 0748 Assessment and Plan Assessment and Plan Patient is a 61-year-old male with past medical history of anxiety, depression, bipolar disorder, OCD, DM 2, GERD, HTN, HLD who initially came into the hospital secondary to left arm pain, chest pain. He was worked up in the chest pain center and found to have more of psychiatric issue and possible Valium withdrawal. As per review of records, his psychiatrist Dr. Soto has been called, patient has been noncompliant with Valium weaning off and has been obtaining Valium on the streets. He is now admitted to psychiatry unit for further evaluation. Consulted for assistance with medical management. Bipolar disorder, anxiety, depression, possible Valium withdrawal -Managed by psychiatry team -Kelsey Miller psych child support case officer outpatient as per patient wanting to know his condition and wanted to speak with psychiatrist [phone] Left upper extremity pain, numbness -Possible neuropathy, secondary to diabetes -CT cervical spine showed posterior disc osteophyte complex C4-C5, C5-C6 and C6-C7 levels. No canal stenosis. Neural foraminal narrowing. Levoscoliosis. -Chest x-ray has been negative -Shoulder x-ray showed degenerative changes AC joint otherwise negative -Discussed extensively with patient results of diagnostic studies. He will continue with the gabapentin as ordered by psychiatry. -Ibuprofen 3 times daily 3 days. Baclofen 3 days HTN HLD -Continue home medication atenolol 100 mg daily, atorvastatin 10 mg daily, lisinopril 2.5 mg to -Monitor BP trend Diabetes mellitus, type II with possible neuropathy -Continue with Januvia -Insulin sliding scale, monitor Accu-Chek -Check hemoglobin A1c -Monitor for hypoglycemia -Diabetic diet DVT prop ambulatory Code Status Full Code Discussed Condition With Patient, nursing Miguel Grande Sep 11, 2017 15:11
[2017-09-11 18:07] VITALS: BP 163/80; PULSE 60; RESP 17; TEMP 98; O2SAT 97
[2017-09-11] MEDS: BACLOFEN 10 MG TAB PO SCH ×2 (18:21→23:25)
[2017-09-11] MEDS: IBUPROFEN 800 MG TAB PO SCH ×2 (18:21→23:26)
[2017-09-11] MEDS: ATORVASTATIN 10 MG TAB PO SCH (20:18)
[2017-09-11] MEDS: MIRTAZAPINE 15 MG TAB PO SCH (20:18)
[2017-09-11] MEDS: LORazepam 1 MG TAB PO PRN (20:18)
[2017-09-11] MEDS: QUEtiapine FUMARATE 100 MG TAB PO SCH (20:18)
[2017-09-11] MEDS: ACETAMINOPHEN/HYDROcodone 325 MG/5 MG TAB PO PRN (20:20)
[2017-09-12 05:34] VITALS: BP 111/59; PULSE 67; RESP 17; TEMP 97.8; O2SAT 92
[2017-09-12] MEDS: INSULIN ASPART SUPPLEMENTAL SCALE SQ SCH ×4 (08:00→20:26)
[2017-09-12] MEDS: ATENOLOL 100 MG TAB PO SCH (08:28)
[2017-09-12] MEDS: BACLOFEN 10 MG TAB PO SCH ×2 (08:28→15:35)
[2017-09-12] MEDS: GABAPENTIN 300 MG CAP PO SCH ×3 (08:28→17:37)
[2017-09-12] MEDS: LISINOPRIL 5 MG TAB PO SCH (08:28)
[2017-09-12] MEDS: DIAZEPAM 5 MG TAB PO SCH ×2 (08:28→20:21)
[2017-09-12] MEDS: IBUPROFEN 800 MG TAB PO SCH ×2 (08:29→15:34)
[2017-09-12] MEDS: QUEtiapine FUMARATE 25 MG TAB PO SCH ×2 (08:38→13:19)
[2017-09-12] MEDS: ACETAMINOPHEN/HYDROcodone 325 MG/5 MG TAB PO PRN (08:38)
--- NOTE | 2017-09-12 10:20 | PD.CONS ---
HPI Service [facility] Hospitalists Consult Requested By Psychiatry Reason for Consult Medical management Primary Care Physician Toney Humphrey MD Diagnoses: History of Present Illness 61-year-old male with past medical history of anxiety, depression, bipolar disorder, OCD, DM 2, GERD, HTN, HLD who initially came into the hospital secondary to left arm pain and chest pain on 09/08. He was initially admitted to the chest pain center but was found to have more of psychiatric issue and possible Valium withdrawal. He was still ruled out for ACS and his major concern became left shoulder and upper arm pain. XR was remarkable for some osteoarthritis and CT of his neck showed some osteophyte disc complex at several levels but no acute impingement. He was transferred to psych by voluntary admission on 09/10. Hospitalist service consulted for medical management. On evaluation, the patient appears significantly improved from my prior encounter with him regarding his LUE pain. He currently has no significant pain and has been able to move his arm, shoulder, and neck without issues. 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 He is tearful at times. He states he is terrified to live in pain and be shaky the rest of his life. He otherwise denies chest pain, shortness of breath, abdominal pain, nausea, or vomiting. Review of Systems Except as stated in HPI: all other systems reviewed are Neg Past Family Social History Allergies: Coded Allergies: penicillin G (Unverified Allergy, Mild, 09/08/17) Past Medical History DM HTN HLD GERD Benzodiazepine abuse Past Surgical History None Active Ordered Medications Acetaminophen/ Hydrocodone Bitart ([place] 5-325 Mg) 1 tab Q8HR PRN PO Last administered on 09/12/17at 08:38; Admin Dose 1 TAB; Start 09/11/17 at 16:00; Stop 09/13/17 at 15:59 Atorvastatin Calcium (Lipitor) 10 mg HS PO Last administered on 09/11/17at 20:18 ; Admin Dose 10 MG; Start 09/11/17 at 21:00 Baclofen (Lioresal) 10 mg Q8H PO Last administered on 09/12/17at 08:28; Admin Dose 10 MG; Start 09/11/17 at 16:00 Ibuprofen (Motrin) 800 mg Q8H PO Last administered on 09/12/17at 08:29; Admin Dose 800 MG; Start 09/11/17 at 16:00 Insulin Aspart (NovoLOG SUPPLEMENTAL SCALE) 1 ACHS SLIDING SCALE SQ; Start at 12:00 Mirtazapine (Remeron) 45 mg HS PO Last administered on 09/11/17at 20:18; Admin Dose 45 MG; Start 09/11/17 at 21:00 Quetiapine Fumarate (SEROquel) 300 mg HS PO Last administered on 09/11/17at 20:18 ; Admin Dose 300 MG; Start 09/11/17 at 21:00 Family History Father from heart attack, had anxiety and depression Social History Denies EtOH, tobacco, illicit drugs Physical Exam Vital Signs Vital Signs Date Time Temp Pulse Resp B/P (MAP) Pulse Ox O2 Delivery O2 Flow Rate FiO2 09/12/17 05:34 97.8 67 17 111/59 (76) 92 09/11/17 18:07 98.0 60 17 163/80 (107) 97 Physical Exam GENERAL: WN, WD male sitting up in bed in NAD. SKIN: Warm and dry. HEENT: AT/NC. Pupils equal and round. MMM. HEART: RRR no m/r/g. LUNGS: CTAB without wheezes or crackles. EXTREMITIES: LUE with full ROM and minimal pain today. NEURO: Awake and alert. Nonfocal. PSYCH: Anxious and hyperverbal. Result Diagram: 09/11/17 0748 Assessment and Plan Problem List: (1) Diabetes mellitus ICD Code: E11.9 - Type 2 diabetes mellitus without complications (2) Hypertension ICD Code: I10 - Essential (primary) hypertension (3) Shoulder arthritis ICD Code: M19.019 - Primary osteoarthritis, unspecified shoulder (4) Cervical disc disease ICD Code: M50.90 - Cervical disc disorder, unspecified, unspecified cervical region (5) TIGIST (generalized anxiety disorder) ICD Code: F41.1 - Generalized anxiety disorder Assessment and Plan 61 YOWM with history of bipolar disorder, anxiety, depression, OCD, DM, GERD, HTN, and benzodiazepine abuse initially admitted to chest pain center on 09/08 but evaluation quickly deemed to be psychiatric in nature. Psych was consulted and patient voluntarily was admitted under psychiatric care on 09/10. 1. Benzodiazepine abuse - Currently being tapered by psych under voluntary admission 2. L shoulder/upper arm pain - Initially presenting with CP, ACS ruled out - CXR negative - XR showing degenerative AC joint - C-spine CT with posterior disc osteophyte complex C4-5, C5-6, and C6-7 with no canal stenosis - Heating pad - Lortab PRN x 3 days - Ibuprofen TID - Gabapentin 300 mg PO TID - PT to eval and treat 3. DM - Resume home Januvia - Hold Byetta - SSI per protocol 4. HLD - Resume home statin 5. HTN - BPs well-controlled - Resume home atenolol 6. Anxiety - Per psychiatry DVT prophylaxis: Ambulating Brittanie Flower MD Sep 12, 2017 10:20
--- NOTE | 2017-09-12 12:49 | HHI.PYPN ---
Subjective Remarks Patient seen and examined with nurse. Chart reviewed. Case discussed with nursing staff who reports patient has been scoring minimally on withdrawal scale. Case discussed with counselor. Case also discussed briefly with Dr. De Los Santos who saw the patient yesterday for an H&P. On my examination today, the patient reports that he feels less anxious with addition of gabapentin. He does remain quite fretful about the prospect of decreasing his Valium dosing. Patient does note that it was goal of his outpatient psychiatrist to get him off the Valium. Patient would like to taper Valium in the inpatient setting to manage any anxiety or other issues that arise. He denies any SI or HI. Denies any AVH. He does not report, nor does he have any evidence of benzodiazepine withdrawal at this time. No side effects from medications. He does continue to complain somewhat of left shoulder pain but otherwise has no medical complaints. Review of Systems Except as stated in HPI: all other systems reviewed are Neg Mental Status Examination Appearance: Appropriate Consciousness: Alert Orientation: x4 Motor Activity: Normal gait, Other (No hand tremor, no diaphoresis, no mydriasis, no other signs of GABAergic withdrawal.) Speech: Unremarkable Language: Adequate Fund of Knowledge: Adequate Attention and Concentration: Adequate Memory: Unremarkable Mood: Anxious Affect: Anxious Thought Process & Associations: Intact, Linear Thought Content: Appropriate Hallucination Type: None Delusion Type: None Suicidal Ideation: No Suicidal Plan: No Suicidal Intention: No Homicidal Ideation: No Homicidal Plan: No Homicidal Intention: No Insight: Adequate Judgment: Adequate Results Labs Admission labs reviewed. CBC unremarkable. CMP unremarkable. TSH within normal limits. Vitals/IOs Vital Signs Date Time Temp Pulse Resp B/P (MAP) Pulse Ox O2 Delivery O2 Flow Rate FiO2 09/12/17 05:34 97.8 67 17 111/59 (50) 92 Assessment & Plan Problem List: (1) TIGIST (generalized anxiety disorder) ICD Codes: F41.1 - Generalized anxiety disorder Assessment & Plan Taper Valium to 5 mg twice daily. We discuss R/B/A of Valium taper. Continue CIWA scale with Ativan for the management of any withdrawal. Add seizure precautions. Continue gabapentin 300 mg 3 times daily for management of anxiety as this seems to be helping. I have discussed with patient the R/B/A of gabapentin therapy and have discussed with him that this is off label use of this medication for anxiety. We also discussed possibility of adding an SSRI for anxiety. Hospitalist input noted and appreciated. Continue to monitor on inpatient unit. Continue other medications and care as ordered. Justification for Cont. Inpt. Medication changes. Discharge Planning Anticipate discharge towards the end of the week. Request HC Surrog/Guard Advoc?: No Huey Fraga MD Sep 12, 2017 12:49
[2017-09-12 19:00] VITALS: BP 147/72; PULSE 59; RESP 17; TEMP 97.8; O2SAT 96
[2017-09-12] MEDS: MIRTAZAPINE 15 MG TAB PO SCH (20:21)
[2017-09-12] MEDS: ATORVASTATIN 10 MG TAB PO SCH (20:21)
[2017-09-12] MEDS: QUEtiapine FUMARATE 100 MG TAB PO SCH (20:21)
[2017-09-12 23:22] VITALS: BP 100/51; PULSE 62; RESP 17; TEMP 97.4; O2SAT 94
--- NOTE | 2017-09-12 23:35 | EKG ---
Date Performed: 09/11/2017 Time Performed: 12:09:49 PTAGE: 61 years EKG: Sinus rhythm NORMAL ECG PREVIOUS TRACING : 09/09/2017 02.01 Since the previous tracing, no significant change noted DOCTOR: Jorge Calero Interpretating Date/Time 09/12/2017 23:34:13
[2017-09-13] MEDS: BACLOFEN 10 MG TAB PO SCH ×4 (00:25→23:04)
[2017-09-13] MEDS: IBUPROFEN 800 MG TAB PO SCH ×4 (00:25→23:04)
[2017-09-13 06:16] VITALS: BP 118/67; PULSE 68; RESP 16; TEMP 98; O2SAT 94
[2017-09-13] MEDS: INSULIN ASPART SUPPLEMENTAL SCALE SQ SCH ×4 (08:00→20:17)
[2017-09-13] MEDS: GABAPENTIN 300 MG CAP PO SCH ×3 (09:18→18:33)
[2017-09-13] MEDS: ATENOLOL 100 MG TAB PO SCH (09:18)
[2017-09-13] MEDS: LISINOPRIL 5 MG TAB PO SCH (09:20)
[2017-09-13] MEDS: DIAZEPAM 5 MG TAB PO SCH ×2 (09:20→20:19)
[2017-09-13] MEDS: QUEtiapine FUMARATE 25 MG TAB PO SCH ×2 (09:22→12:57)
--- NOTE | 2017-09-13 10:33 | PD.TTN ---
Patient Problems 1. Discharge planning 2. Medication compliance 3. Knowledge deficit 4. Lack of coping skills Progress Toward Goals Provider Present: Dr. Cindy Fraga Provider Input: 09/13/2017; Per doctor patient's medication (valium) is bieng titrated to remove patient from this medication prior to dc home. Psychiatric Counselors Present: HEMALATHA Vásquez Psych Therapist Input: 09/13/2017; assign counselor will contact family to discuss dc needs Group Spec/RT/OT/WILSON Present: TAYLOR Rodriguez, Michael Duron, OT Group Spec/RT/OT/WILSON Input: 09/13/2017 patient will be orientated with groups and activities Documentation Scribe: Yudy Shaver Sep 13, 2017 10:33
--- NOTE | 2017-09-13 10:44 | HHI.PYPN ---
Subjective Remarks Patient seen and examined with nurse. Chart reviewed. Case discussed with nursing staff. Case discussed in treatment team. On my examination, patient complains of poor sleep, although this apparently was chiefly due to being awakened for vitals and the introduction of a malodorous roommate who has since been moved. Patient expresses reluctance today to further tapering his Valium. He does not complain of withdrawal symptoms. He simply feels like the Valium was working fine at the 15mg/day dose and sees no reason to change it. I did reiterate that there are other pharmacologic strategies for management of anxiety, including the gabapentin he is presently on, but patient prefers the Valium. Patient denies suicidal or homicidal ideation. He denies audiovisual hallucinations. No side effects from medications. No physical complaints. Patient is requesting to remain another inpatient day but thereafter may wish to leave the hospital. Review of Systems Except as stated in HPI: all other systems reviewed are Neg Mental Status Examination Appearance: Appropriate Consciousness: Alert Orientation: x4 Motor Activity: Normal gait, Other (No hand tremor, no diaphoresis, no mydriasis, no other signs of GABAergic withdrawal.) Speech: Unremarkable Language: Adequate Fund of Knowledge: Adequate Attention and Concentration: Adequate Memory: Unremarkable Mood: Appropriate Affect: Appropriate, Other (Calmer, less anxious) Thought Process & Associations: Intact, Linear Thought Content: Appropriate Hallucination Type: None Delusion Type: None Suicidal Ideation: No Suicidal Plan: No Suicidal Intention: No Homicidal Ideation: No Homicidal Plan: No Homicidal Intention: No Insight: Adequate Judgment: Adequate Mental Status Exam Remarks No signs of any GABAergic withdrawal. Results Labs Labs reviewed. Vitals/IOs Vital Signs Date Time Temp Pulse Resp B/P (MAP) Pulse Ox O2 Delivery O2 Flow Rate FiO2 09/13/17 06:16 98.0 68 16 118/67 (31) 94 Assessment & Plan Problem List: (1) TIGIST (generalized anxiety disorder) ICD Codes: F41.1 - Generalized anxiety disorder Assessment & Plan Continue current psychotropics as ordered. Patient is resistant to further reduction in Valium dosing and does not have interest in alternative strategies , feeling the Valium is superior. I will revisit the matter with patient tomorrow, but if he feels the same way at that time, then I do not think there is much to be gained from further hospitalization. Hospitalist input noted and appreciated. Continue to monitor on the inpatient unit. Continue other medications and care as ordered. Justification for Cont. Inpt. Plan to revisit alternative strategies for management of anxiety as noted above. Discharge Planning Possible discharge tomorrow. Request HC Surrog/Guard Advoc?: No Huey Fraga MD Sep 13, 2017 10:44
--- NOTE | 2017-09-13 11:56 | HHI.PR ---
Subjective Remarks Follow-up for left arm/shoulder pain. The patient reports continued left arm and shoulder pain however it has improved compared to previous days. He believes the ibuprofen is helping. He denies any chest pain, palpitations, shortness of breath. He is tolerating oral intake. He has no other medical complaints at this time. Vital signs reviewed and stable. Objective Vitals Vital Signs Date Time Temp Pulse Resp B/P (MAP) Pulse Ox O2 Delivery O2 Flow Rate FiO2 09/13/17 06:16 98.0 68 16 118/67 (84) 94 09/12/17 23:22 97.4 62 17 100/51 (67) 94 09/12/17 19:00 97.8 59 17 147/72 (97) 96 Result Diagram: 09/11/17 0748 Objective Remarks GENERAL: Well-nourished, well-developed middle-aged male patient in [facility]. SKIN: Warm and dry. No rash. HEENT: Normocephalic. Atraumatic. Pupils equal and round. Mucous membranes pink and moist. NECK: Supple. Trachea midline. Nontender. CARDIOVASCULAR: Regular rate and rhythm. No murmur appreciated. RESPIRATORY: No accessory muscle use. Clear to auscultation. Breath sounds equal bilaterally. GASTROINTESTINAL: Abdomen soft, non-tender, nondistended. Normoactive bowel sounds x4. MUSCULOSKELETAL: No obvious deformities. Extremities without clubbing, cyanosis , or edema. Full active range of motion of the left arm and shoulder. Left arm /shoulder nontender to palpation. NEUROLOGICAL: Awake and alert. No obvious cranial nerve deficits. Motor grossly within normal limits. Moving all extremities spontaneously. 5/5 strength of bilateral upper extremities. Normal speech. Medications and IVs Current Medications Medications (Trade) Dose Ordered Sig/Tres Route Start Time Stop Time Status Last Admin (Benadryl) 50 mg HS PRN PO 09/10/17 22:15 (Benadryl Inj) 50 mg HS PRN IM 09/10/17 22:15 (Tylenol) 650 mg Q4H PRN PO 09/10/17 22:15 09/11/17 12:51 (Milk Of Magnesia Liq) 30 ml DAILY PRN PO 09/10/17 22:15 (Mag-Al Plus Susp Liq) 30 ml Q6H PRN PO 09/10/17 22:15 (Ativan) 1 mg Q4H PRN PO 09/10/17 22:15 09/11/17 20:18 (Ativan Inj) 1 mg Q4H PRN IV PUSH 09/10/17 22:15 (Ativan) 2 mg Q2H PRN PO 09/10/17 22:15 (Ativan Inj) 2 mg Q2H PRN IV PUSH 09/10/17 22:15 (Ativan Inj) 2 mg Q1H PRN IV PUSH 09/10/17 22:15 (Ativan Inj) 2 mg Q15M PRN IV PUSH 09/10/17 22:15 (Romazicon Inj) 0.2 mg Q1M PRN IV PUSH 09/10/17 22:15 (SEROquel) 300 mg HS PO 09/11/17 21:00 09/12/17 20:21 (SEROquel) 50 mg DAILY@0900,1200 PO 09/11/17 09:00 09/13/17 12:57 (Remeron) 45 mg HS PO 09/11/17 21:00 09/12/17 20:21 (Neurontin) 300 mg TID PO 09/11/17 09:00 09/13/17 12:57 (Tenormin) 100 mg DAILY PO 09/11/17 09:00 09/13/17 09:18 (Lipitor) 10 mg HS PO 09/11/17 21:00 09/12/17 20:21 (Januvia) 25 mg DAILY PO 09/11/17 09:00 09/13/17 09:20 (Prinivil) 2.5 mg DAILY PO 09/11/17 09:00 09/13/17 09:20 (D50w (Vial) Inj) 50 ml UNSCH PRN IV PUSH 09/11/17 08:30 (Glucagon Inj) 1 mg UNSCH PRN OTHER 09/11/17 08:30 (NovoLOG SUPPLEMENTAL SCALE) 1 ACHS SLIDING SCALE SQ 09/11/17 12:00 (Pill Splitter) 1 ea UNSCH PRN OTHER 09/11/17 08:45 (Motrin) 800 mg Q8H PO 09/11/17 16:00 09/13/17 09:24 (Lioresal) 10 mg Q8H PO 09/11/17 16:00 09/13/17 09:17 (Ames 5-325 Mg) 1 tab Q8HR PRN PO 09/11/17 16:00 09/13/17 15:59 09/12/17 08:38 (Valium) 5 mg BID PO 09/12/17 21:00 09/13/17 09:20 A/P Problem List: (1) Diabetes mellitus ICD Code: E11.9 - Type 2 diabetes mellitus without complications (2) Hypertension ICD Code: I10 - Essential (primary) hypertension (3) Shoulder arthritis ICD Code: M19.019 - Primary osteoarthritis, unspecified shoulder (4) Cervical disc disease ICD Code: M50.90 - Cervical disc disorder, unspecified, unspecified cervical region (5) TIGIST (generalized anxiety disorder) ICD Code: F41.1 - Generalized anxiety disorder Assessment and Plan 61 YOWM with history of bipolar disorder, anxiety, depression, OCD, DM, GERD, HTN, and benzodiazepine abuse initially admitted to chest pain center on 09/08 but evaluation quickly deemed to be psychiatric in nature. Psych was consulted and patient voluntarily was admitted under psychiatric care on 09/10. Benzodiazepine abuse - Currently being tapered by psych under voluntary admission L shoulder/upper arm pain - Initially presenting with CP, ACS ruled out - CXR negative - XR showing degenerative AC joint - C-spine CT with posterior disc osteophyte complex C4-5, C5-6, and C6-7 with no canal stenosis - Heating pad - Lortab PRN x 3 days - Ibuprofen TID - Gabapentin 300 mg PO TID - PT eval, no PT needed at discharge DM - Resume home Januvia - D/c Stevie as blood sugars very well controlled on Januvia only - SSI per protocol, has not required any insulin throughout admission HLD - Resume home statin HTN - BPs well-controlled - Resume home atenolol Anxiety - Per psychiatry DVT prophylaxis: Ambulation Discharge Planning Patient is medically stable at this time, will sign off. Please reconsult hospitalist as needed if any new issues arise. Thank you very much for this consultation. Blanca Arnold PA-C Sep 13, 2017 11:56 am
[2017-09-13] MEDS ORDERED: IBUP-232 PO (11:58)
[2017-09-13 18:06] VITALS: BP 129/68; PULSE 58; RESP 16; TEMP 98; O2SAT 94
[2017-09-13] MEDS: MIRTAZAPINE 15 MG TAB PO SCH (20:19)
[2017-09-13] MEDS: QUEtiapine FUMARATE 100 MG TAB PO SCH (20:19)
[2017-09-13] MEDS: ATORVASTATIN 10 MG TAB PO SCH (20:24)
[2017-09-14 06:19] VITALS: BP 117/56; PULSE 67; RESP 17; TEMP 97.7
[2017-09-14] MEDS: INSULIN ASPART SUPPLEMENTAL SCALE SQ SCH ×4 (06:35→20:57)
[2017-09-14] MEDS: GABAPENTIN 300 MG CAP PO SCH ×2 (08:34→12:28)
[2017-09-14] MEDS: ATENOLOL 100 MG TAB PO SCH (08:35)
[2017-09-14] MEDS: BACLOFEN 10 MG TAB PO SCH ×3 (08:35→23:14)
[2017-09-14] MEDS: IBUPROFEN 800 MG TAB PO SCH ×3 (08:35→23:14)
[2017-09-14] MEDS: LISINOPRIL 5 MG TAB PO SCH (08:35)
[2017-09-14] MEDS: DIAZEPAM 5 MG TAB PO SCH (08:35)
[2017-09-14] MEDS: QUEtiapine FUMARATE 25 MG TAB PO SCH ×2 (08:35→12:28)
[2017-09-14 12:30] VITALS: BP 114/58; PULSE 98; RESP 18; TEMP 97.5; O2SAT 99
--- NOTE | 2017-09-14 12:31 | HHI.PYPN ---
Subjective Remarks Patient seen and examined with counselor. Chart reviewed. Case discussed with nursing staff. No behavioral issues noted. On my exam, patient remains a little anxious. He does not describe any withdrawal symptoms, nor is there any objective evidence of GABAergic withdrawal. He is somewhat perseverative on medications. No side effects from medications. He is presently agreeable to further titration of his gabapentin to target anxiety as well as discontinuation of Valium. No physical complaints. Review of Systems Except as stated in HPI: all other systems reviewed are Neg Mental Status Examination Appearance: Appropriate Consciousness: Alert Orientation: x4 Motor Activity: Other (No signs of withdrawal noted. No other motor abnormalities noted.) Speech: Unremarkable Language: Adequate Fund of Knowledge: Adequate Attention and Concentration: Adequate Memory: Unremarkable Mood: Appropriate Affect: Appropriate, Other (Calmer, less anxious) Thought Process & Associations: Circumstantial Thought Content: Appropriate Hallucination Type: None Delusion Type: None Suicidal Ideation: No Suicidal Plan: No Suicidal Intention: No Homicidal Ideation: No Homicidal Plan: No Homicidal Intention: No Insight: Adequate Judgment: Adequate Results Labs Labs reviewed. Vitals/IOs Vital Signs Date Time Temp Pulse Resp B/P (MAP) Pulse Ox O2 Delivery O2 Flow Rate FiO2 09/14/17 06:19 97.7 67 17 117/56 (76) 09/13/17 18:06 94 Assessment & Plan Problem List: (1) TIGIST (generalized anxiety disorder) ICD Codes: F41.1 - Generalized anxiety disorder Assessment & Plan Discontinue Valium. Patient has absolutely no signs of withdrawal and CIWA scores have been 0. Continue CIWA scale with Ativan for the management of any withdrawal, should it emerge. I will titrate patient's gabapentin to 400 mg 3 times a day to manage anxiety. Continue other psychotropics as ordered. Hospitalist input noted and appreciated. Hospitalist has signed off of the case. Continue other medications and care as ordered. Justification for Cont. Inpt. Medication changes. Discharge Planning Anticipate discharge Tuesday. Request HC Surrog/Guard Advoc?: No Huey Fraga MD Sep 14, 2017 12:31
[2017-09-14] MEDS: GABAPENTIN 400 MG CAP PO SCH ×2 (13:00→18:14)
[2017-09-14 18:39] VITALS: BP 146/63; PULSE 49; RESP 18; TEMP 97.6; O2SAT 99
[2017-09-14] MEDS: QUEtiapine FUMARATE 100 MG TAB PO SCH (20:41)
[2017-09-14] MEDS: ATORVASTATIN 10 MG TAB PO SCH (20:41)
[2017-09-14] MEDS: MIRTAZAPINE 15 MG TAB PO SCH (20:41)
[2017-09-15] VITALS: BP 109/58; PULSE 61; RESP 16
[2017-09-15 05:52] VITALS: BP 104/59; PULSE 64; RESP 16; TEMP 97.9; O2SAT 94
[2017-09-15] MEDS: INSULIN ASPART SUPPLEMENTAL SCALE SQ SCH ×4 (07:00→21:00)
[2017-09-15] MEDS: LISINOPRIL 5 MG TAB PO SCH (08:42)
[2017-09-15] MEDS: QUEtiapine FUMARATE 25 MG TAB PO SCH ×2 (08:42→12:29)
[2017-09-15] MEDS: GABAPENTIN 400 MG CAP PO SCH ×2 (08:42→12:29)
[2017-09-15] MEDS: BACLOFEN 10 MG TAB PO SCH ×2 (08:43→16:51)
[2017-09-15] MEDS: IBUPROFEN 800 MG TAB PO SCH ×2 (08:43→16:51)
[2017-09-15 08:51] VITALS: BP 130/85; PULSE 65
[2017-09-15] MEDS: ATENOLOL 100 MG TAB PO SCH (08:52)
--- NOTE | 2017-09-15 10:20 | HHI.PYPN ---
Subjective Remarks Patient seen and examined with counselor. Chart reviewed. Case discussed with nursing staff and with counselor. On my examination today, patient has no signs of GABAergic withdrawal. CIWA scores have been 0-1. He does complain of increased anxiety today. He does have a prominent stammer and also what I suspect is a nervous cough. He denies any SI or HI. Denies any AVH. No side effects from medications. Agreeable to further titration of gabapentin to target anxiety. No physical complaints. Review of Systems Except as stated in HPI: all other systems reviewed are Neg Mental Status Examination Appearance: Appropriate Consciousness: Alert Orientation: x4 Motor Activity: Other (No motor abnormalities noted. No signs of any GABAergic withdrawal noted.) Speech: Other (Stam[place]) Language: Adequate Fund of Knowledge: Adequate Attention and Concentration: Adequate Memory: Unremarkable Mood: Anxious Affect: Anxious Thought Process & Associations: Circumstantial Thought Content: Appropriate Hallucination Type: None Delusion Type: None Suicidal Ideation: No Suicidal Plan: No Suicidal Intention: No Homicidal Ideation: No Homicidal Plan: No Homicidal Intention: No Insight: Adequate Judgment: Adequate Results Labs Labs reviewed. No new labs. Vitals/IOs Vital Signs Date Time Temp Pulse Resp B/P (MAP) Pulse Ox O2 Delivery O2 Flow Rate FiO2 09/15/17 08:51 65 130/85 (100) 09/15/17 05:52 97.9 16 94 Assessment & Plan Problem List: (1) TIGIST (generalized anxiety disorder) ICD Codes: F41.1 - Generalized anxiety disorder Assessment & Plan Titrate gabapentin to 600 mg 3 times daily to target anxiety. Patient has no signs of withdrawal off of Valium. Continue other psychotropics as ordered. Continue other medications and care as ordered. Justification for Cont. Inpt. Med changes Discharge Planning Possible discharge tomorrow, Tuesday Request HC Surrog/Guard Advoc?: No Huey Fraga MD Sep 15, 2017 10:20
[2017-09-15 11:22] VITALS: BP 117/56; PULSE 60; RESP 17; TEMP 97.4; O2SAT 95
[2017-09-15] MEDS: ACETAMINOPHEN 325 MG TAB PO PRN (12:32)
[2017-09-15 15:24] VITALS: BP_SYST 121; BP_SYST 198; BP_DIAS 60; BP_DIAS 93; PULSE 52; PULSE 84; RESP 17; RESP 18; TEMP 97.7; TEMP 97.8; O2SAT 93; O2SAT 98
[2017-09-15] MEDS: GABAPENTIN 300 MG CAP PO SCH (18:03)
[2017-09-15 18:52] VITALS: BP 134/70; PULSE 54; RESP 16; TEMP 97.4; O2SAT 97
[2017-09-15] MEDS: ATORVASTATIN 10 MG TAB PO SCH (21:39)
[2017-09-15] MEDS: QUEtiapine FUMARATE 100 MG TAB PO SCH (21:39)
[2017-09-15] MEDS: MIRTAZAPINE 15 MG TAB PO SCH (21:39)
[2017-09-16] MEDS: BACLOFEN 10 MG TAB PO SCH ×2 (00:11→09:51)
[2017-09-16] MEDS: IBUPROFEN 800 MG TAB PO SCH ×2 (00:11→09:52)
[2017-09-16 06:12] VITALS: BP 128/56; PULSE 64; RESP 15; TEMP 98; O2SAT 94
[2017-09-16] MEDS: INSULIN ASPART SUPPLEMENTAL SCALE SQ SCH ×2 (08:00→12:00)
[2017-09-16] MEDS: QUEtiapine FUMARATE 25 MG TAB PO SCH ×2 (09:51→13:27)
[2017-09-16] MEDS: ATENOLOL 100 MG TAB PO SCH (09:52)
[2017-09-16] MEDS: GABAPENTIN 300 MG CAP PO SCH ×2 (09:52→13:27)
[2017-09-16] MEDS: LISINOPRIL 5 MG TAB PO SCH (09:54)
[2017-09-16] MEDS ORDERED: NEUR300C PO (10:49)
--- NOTE | 2017-09-16 10:49 | HHI.DS ---
Psychiatry Discharge Summary Inpatient Psychiatric care?: Yes Advance Directive: No Reason Not Provided: declined Mental Health AdvanceDirective: No Health Care Proxy: No Admission Admission Date Sep 10, 2017 at 20:03 Admission Diagnosis: (1) TIGIST (generalized anxiety disorder) ICD Code: F41.1 - Generalized anxiety disorder Brief History Patient is a 61-year-old man, single, domiciled alone, with a past psychiatric history of depression, anxiety, insomnia, 1 previous psychiatric admission, no previous suicide attempt or self interest behavior, with a past medical history significant for hypertension, hyperlipidemia, diabetes, GERD who had presented to the ED due to left arm pain and during evaluation was noted to have significant anxiety which psychiatry was consulted for evaluation and was admitted to the inpatient psychiatric unit voluntarily for further evaluation and management of anxiety. Patient was found sitting in hospital bed noted to be calm, cooperative. Patient states that he has "very bad anxiety " and that he had been on Valium for years and during evaluation in the ED with the psychiatrist and collaboration with his outpatient psychiatrist had agreed on tapering of Valium with new treatment regimen to address anxiety. Patient states that he had been shaking in the ER which prompted a consult with psychiatry due to his anxiety and mostly worried about his left arm pain which he states had been evaluated in the ED for the same. Patient continues report significant left arm pain reporting this difficulty with lifting his arm but denies any triggering events, trauma or fall related to the pain. He denies any depressive, manic or psychotic symptoms at this time stating that his mood has been "good" denies any perceptual disturbances or delusions, rest of psychiatric review of systems negative. Family psychiatric history: Denies Past psychiatric history: Anxiety, depression, insomnia, 1 previous psychiatric admission in 1999, no previous suicide attempt or self-injurious behavior. Outpatient mental health providers Dr. Soto, denies any history of abuse. Substance use history: Denies Past medical history: Hypertension, hyperlipidemia, diabetes, GERD Allergies: Penicillin Social history: Born in [place], single, no children, domiciled alone, unemployed on SSI, no background, no asked to firearms. No legal history. Tobacco Use In Past 30 Days: No Tobacco Past 30 Days Alcohol Use: Never Hospital Course Patient was admitted to a locked, inpatient psychiatric unit. General medical consultation was obtained and the patient was medically cleared prior to discharge. Appropriate precautions were in place throughout patient's hospital stay. Psychotropic medications were adjusted. Patient tolerated medications well without side effects. He had an uneventful taper off of his Valium, and CIWA scores were minimal in the several days prior to discharge. There was no evidence of any suicidality or homicidality on the inpatient unit. There there was no evidence of self-care deficit. On the day of discharge: Patient seen and examined with nurse. Chart reviewed. Case discussed with nursing staff. Case discussed in treatment team. On my examination today, the patient denies any suicidal or homicidal ideation, intent or plan and contracts for safety. I can elicit no severe depressive or hypomanic/manic symptoms. He does describe some ongoing anxiety but this seems attenuated versus admission. He denies any audiovisual hallucinations. I can elicit no delusional material. He exhibits no stammer, nor does he have a nervous cough today. He does exhibit some dependent personality traits. He denies side effects from medications. He has no physical complaints. No complaints of withdrawal. Suicide and violence risk assessment on day of discharge both suggest lower imminent risk from mental illness, and the patient's level of function is adequate for outpatient care. The patient has maximized benefit from this inpatient psychiatric hospital stay and will be discharged today with psychiatric follow-up as arranged by counselor. I have encouraged the patient to pursue psychotherapy on an outpatient basis. Patient is also to follow up with primary care. I have counseled the patient regarding warning signs for need to return to the psychiatric emergency room as part of a general safety plan. Results Blood Pressure 128 / 56 Vital Signs Date Time Temp Pulse Resp B/P (MAP) Pulse Ox O2 Delivery O2 Flow Rate FiO2 09/16/17 06:12 98.0 64 15 128/56 (80) 94 Laboratory Results Test 09/11/17 07:48 Cholesterol Level 132 MG/DL (120-200) HDL Cholesterol 39.6 MG/DL (40.0-60.0) Hemoglobin A1c 5.0 % (4.3-6.0) LDL Cholesterol 74 MG/DL (0-99) Triglycerides Level 90 MG/DL (42-150) Summary of Procedures None done Imaging None done Pending results at discharge: No Medications # of Antipsychotic meds at D/C: 1 Approp Antipsych med options 1 - Minimum of three failed multiple trials of monotherapy. 2 - Documented plan to taper to monotherapy due to previous use of multiple meds OR cross-taper in progress at D/C. 3 - Documentation of augmentation of Clozapine. 4 - Justification other than those listed in allowable values 1-3, document here : Discharge Discharge Date: Sep 16, 2017 Discharge Diagnosis: (1) TIGIST (generalized anxiety disorder) Diagnosis: Principal (Improved versus admission) ICD Code: F41.1 - Generalized anxiety disorder Pt Condition on Discharge: Fair Discharge Disposition: Discharge Home Discharge Instructions Diet Instructions: Diabetic Diet Activities you can perform: Weight Bearing as Wally Scheduled Appointment: As per counselor's notes New Medications: Ibuprofen (Ibuprofen) 600 Mg Tab 600 MG PO Q8H PRN for PAIN, #30 TAB 0 Refills Gabapentin (Neurontin) 300 Mg Cap 600 MG PO TID for Mental Health for 15 Days, CAP 1 Refill Continued Medications: Atenolol (Atenolol) 100 Mg Tab 100 MG PO DAILY for Blood Pressure Management, #30 TAB 0 Refills Atorvastatin (Atorvastatin) 10 Mg Tab 10 MG PO HS for Cholesterol Management, #30 TAB 0 Refills Lisinopril (Lisinopril) 2.5 Mg Tab 2.5 MG PO DAILY, #30 TAB 0 Refills Mirtazapine (Mirtazapine) 45 Mg Tab 45 MG PO HS for Depression Control, #30 TAB 0 Refills Omeprazole (Omeprazole) 20 Mg Tab 20 MG PO DAILY, #30 TAB 0 Refills Quetiapine (Quetiapine) 50 Mg Tab 50 MG PO BID, #60 TAB 0 Refills Quetiapine (Quetiapine) 300 Mg Tab 300 MG PO HS, #30 TAB 0 Refills Sitagliptin (Januvia) 25 Mg Tab 25 MG PO DAILY for Blood Sugar Management, #30 TAB 0 Refills Discontinued Medications: Diazepam (Diazepam) 5 Mg Tab 5 MG PO BID PRN for ANXIETY, TAB 0 Refills Exenatide Inj (Byetta Inj) 5 Mcg/0.02 Ml Pfpen 5 MCG SQ BID for Blood Sugar Management, #1.2 ML 0 Refills Use within 60 minutes before the two main meals of the day. Gabapentin (Neurontin) 300 Mg Cap 300 MG PO TID for Pain Management, #90 CAP Discharge Time <= 30 minutes Mental Status Examination Appearance: Appropriate Consciousness: Alert Orientation: x4 Motor Activity: Other (No abnormal motor movements noted. No hand tremor, no mydriasis, no diaphoresis, no other signs of withdrawal noted.) Speech: Unremarkable Language: Adequate Fund of Knowledge: Adequate Attention and Concentration: Adequate Memory: Unremarkable Mood: Other (Somewhat anxious) Affect: Other (Appears less anxious) Thought Process & Associations: Intact Thought Content: Appropriate Hallucination Type: None Delusion Type: None Suicidal Ideation: No Suicidal Plan: No Suicidal Intention: No Homicidal Ideation: No Homicidal Plan: No Homicidal Intention: No Insight: Adequate Judgment: Adequate Discharge/Advance Care Plan Health Problems: (1) TIGIST (generalized anxiety disorder) Goals to promote your health * To prevent worsening of your condition and complications * To maintain your health at the optimal level Directions to meet your goals Take your medications as prescribed Follow your dietary instruction Follow activity as directed Keep your appointments as scheduled Take your immunizations and boosters as scheduled If your symptoms worsen call your PCP, if no PCP go to Urgent Care Center or Emergency Room For 11/10 questions related to your inpatient stay or results of tests pending at discharge, please contact Dr. Huey Fraga at Smoking is Dangerous to Your Health. Avoid second hand smoking Huey Fraga MD Sep 16, 2017 10:49
[2017-09-16] MEDS ORDERED: BACL10TA PO (12:48)
== END 2017-09-16 14:30 | disposition home or self-care (01) | DRG 880 ==
LOC: H260 20:03
PROVIDERS: ADMIT Psychiatry & Neurology Psychiatry; ATTEND Psychiatry & Neurology Psychiatry
DX: F41.1 Generalized anxiety disorder (principal); Z91.19 Patient's noncompliance with other medical treatment and regimen; I10 Essential (primary) hypertension; E78.5 Hyperlipidemia, unspecified; E11.9 Type 2 diabetes mellitus without complications; K21.9 Gastro-esophageal reflux disease without esophagitis; G47.00 Insomnia, unspecified; M19.012 Primary osteoarthritis, left shoulder; F31.9 Bipolar disorder, unspecified; R07.9 Chest pain, unspecified; R20.0 Anesthesia of skin; F42.9 Obsessive-compulsive disorder, unspecified; F13.10 Sedative, hypnotic or anxiolytic abuse, uncomplicated; M25.78 Osteophyte, vertebrae; M50.90 Cervical disc disorder, unspecified, unspecified cervical region; Z79.899 Other long term (current) drug therapy; Z79.84 Long term (current) use of oral hypoglycemic drugs; Z83.3 Family history of diabetes mellitus; Z81.8 Family history of other mental and behavioral disorders; R25.1 Tremor, unspecified; E78.00 Pure hypercholesterolemia, unspecified
CPT/HCPCS: 80048; 80061; 82948; 83036; 84443; 93005